=== PATIENT | male | born 1970 | race Caucasian/White ===

== ENCOUNTER → 2016-05-04 | Outpatient (CLI) | payer OTHER ==
[~2016-05-04] MED LIST: ALLO100T PO; AMOX500C3 PO; ASPI81TA28 PO; ATV5 PO; BUPR-79 PO; CMD10 PO; CMD5 PO; ESCI1TAB18 PO; FEBU40TA PO; LPR25 PO; METO100T14 PO; METO50TA16 PO; MISC4CAP PO; MULTTAB58 PO; ROPI0.25 PO; VANC5CAP PO; WARF2TAB8 PO; WARF5TAB7 PO; ZCRT/40 PO; ZOLP10TA PO
[2016-05-04 12:05] LABS: BASO % 0.3 %; BASO ABS # 0.02 K/uL (0-0.2); COMPLETE YES; EOS % 2.5 %; HEMATOCRIT 42.7 % (42-52); IG% 0.1 %; LYMPH % 30.4 %; LYMPH ABS # 2.34 K/uL (1.2-3.4); MEAN CELL VOLUME 88.4 fL (80-100); MEAN CORPUSCULAR HEMOGLOBIN 29.4 pg (25-34); MEAN CORPUSCULAR HGB CONC 33.3 g/dl (32-36); MEAN PLATELET VOLUME 10.5 fL (7.4-10.4); MONO % 6.2 %; NEUT % 60.5 %; PLATELET COUNT 248 K/uL (130-400); RED BLOOD COUNT 4.83 M/uL (4.7-6.1); WHITE BLOOD COUNT 7.71 K/uL (4.8-10.8)
[2016-05-04 12:42] LABS: ALT/SGPT 55 U/L (12-78); AST/SGOT 52 U/L (15-37); BLOOD UREA NITROGEN 22 mg/dl (7-18); BUN/CREATININE RATIO 23.1 (10-20); CALCIUM 8.8 mg/dl (8.5-10.1); CARBON DIOXIDE 28 mmol/L (21-32); CHLORIDE 108 mmol/L (98-107); CREATININE 0.96 mg/dl (0.60-1.40); GLUCOSE 89 mg/dl (70-99); POTASSIUM 4.2 mmol/L (3.5-5.1); SODIUM 144 mmol/L (136-145)
[2016-05-04 12:45] LABS: ALKALINE PHOSPHATASE 95 U/L (45-117)
== END | disposition home or self-care (01) ==
LOC: C.LAB1850 10:27
PROVIDERS: ATTEND Internal Medicine
DX: M31.0 Hypersensitivity angiitis (principal)

== ENCOUNTER → 2016-07-31 | Outpatient (CLI) | payer OTHER ==
[2016-07-31 11:05] LABS: ALT/SGPT 36 U/L (12-78); AST/SGOT 22 U/L (15-37)
== END | disposition home or self-care (01) ==
LOC: C.LAB 09:28
PROVIDERS: ATTEND Internal Medicine
DX: M31.0 Hypersensitivity angiitis (principal)

== ENCOUNTER 2016-12-04 14:43 | Inpatient (IN) | payer OTHER ==
[~2016-12-04] VITALS: Ht 180.3 cm; Wt 113.9 kg
[~2016-12-04 14:43] MED LIST changes: -CMD10 PO; -FEBU40TA PO; -METO100T14 PO; -ROPI0.25 PO; -WARF2TAB8 PO; -WARF5TAB7 PO
--- NOTE | 2016-12-04 15:08 | EMERGENCY ROOM VISIT NOTE ---
History First contact with patient: 14:55 Chief Complaint: CARDIAC ASSESSMENT Stated Complaint: HEART FLUTTERING/SKIPPING/RACING/HEADACHE/PULSE Nursing Triage Summary: Pt c/o heart racing, fluttering, skipping, had arythmia in highschool and has an artificial valve. Yesterday rate was 150's today 130's. "and I have a gnarly headache" History of Present Illness The patient is a 46 year old male who presents to the Emergency Room with complaints of "Heart fluttering, skipping, racing, headache, pulse". The patient states he has a history of arrhythmia in high school, and had a heart valve replacement at [facility] 07/26/2011. This was replacing down valve as per patient. He states that he has been doing well, and takes Coumadin. His last INR was 2.51 month ago. He states that 1 week ago, he went to [facility] after eating developed a very high pulse. He states that he was okay until yesterday when his pulse went up to 150 and has been persistently at that number. He was unable to sleep last night secondary to shortness of breath in the high pulse rate. He denies any chest pain. Does have associated headache. His history of hypertension. He denies any history of blood clots, leg swelling. Review of Systems A complete 10-point Review of Systems was discussed with the patient, with pertinent positives and negatives listed in the History of Present Illness. All remaining Review of Systems questions can be considered negative unless otherwise specified. Past Medical/Surgical History Medical Problems: (1) C. difficile colitis (2) Palpitations (3) Tachycardia Surgical Problems: (1) H/O mitral valve replacement Family History No pertinent family history Social History Smoking Status: Former Smoker Alcohol Use: none Drug Use: none Marital Status: in relationship Housing Status: unknown Occupation Status: employed Current/Historical Medications Scheduled Amoxicillin (Amoxil), 2,000 MG PO UD Aspirin (Aspirin Ec), 81 MG PO QAM Bupropion (Wellbutrin Sr), 150 MG PO BID Escitalopram Oxalate (Lexapro), 20 MG PO HS Febuxostat (Uloric), 40 MG PO QAM Metoprolol Tartrate (Lopressor) (Lopressor), 150 MG PO QPM Multiple Vitamin (Multivitamin), 1 TAB PO QAM Probiotic Product (Align), 4 MG PO HS Ropinirole (Requip), 0.5 MG PO HS Simvastatin (Zocor), 40 MG PO QPM Vancomycin Hcl (Vancomycin), 125 MG PO QPM Warfarin Sod (Jantoven), 5 MG PO DAILY Warfarin Sod (Jantoven), 2 MG PO DAILY Zolpidem Tartrate (Ambien), 10 MG PO HS Scheduled PRN Lorazepam (Ativan *), 0.5 MG PO TID PRN Physical Exam Vital Signs Date Time Temp Pulse Resp B/P (MAP) Pulse Ox O2 Delivery O2 Flow Rate FiO2 12/04/16 19:38 103 23 130/71 95 12/04/16 19:05 115 26 117/83 96 Room Air 12/04/16 17:21 132 19 123/91 96 Room Air 12/04/16 16:44 116 32 134/80 97 12/04/16 16:12 111 24 128/97 98 Room Air 12/04/16 15:58 128 23 132/96 98 Room Air 12/04/16 15:58 104 132/96 12/04/16 15:32 136 17 112/96 98 Room Air 12/04/16 15:31 98 Room Air 12/04/16 15:21 134 154/118 12/04/16 15:14 133 12/04/16 14:48 96 Room Air 12/04/16 14:45 36.7 Room Air Physical Exam VITAL SIGNS - Vital signs and nursing notes were reviewed. Patient is tachycardic, with stable blood pressure. His O2 sat is appropriate. GENERAL -46-year-old male appearing his stated age who is in no acute distress. Communicates well with provider and answers questions appropriately. SKIN - Without rashes. HEAD - NC/AT. MOUTH/OROPHARYNX - Without perioral cyanosis. Buccal mucosa pink and moist and without leukoplakia. NECK - Neck with FROM. Supple to palpation. No lymphadenopathy noted. No nuchal rigidity. LUNGS - Chest wall symmetric without accessory muscle use, intercostals retractions, or central cyanosis. Normal vesicular breath sounds CTA B/L. No wheezes, rales, or rhonchi appreciated. CARDIAC - RRR with S1/S2. No murmur, rubs, or gallops appreciated. NEUROLOGIC - Cranial nerves II through XII grossly intact. Sensory intact to light touch throughout. PSYCH - A&Ox3 and cooperates fully with examiner. Pt is very pleasant and interacts well with examiner. Medical Decision & Procedures ER Provider Diagnostic Interpretation: CHEST ONE VIEW PORTABLE CLINICAL HISTORY: Dyspnea, tachycardia. Mechanical heart valve COMPARISON STUDY: 07/03/2014 FINDINGS: Mild stable cardiomegaly. Prior median sternotomy. Lungs are clear. Diaphragms are smooth. IMPRESSION: Chronic and postoperative change. No acute process. The above report was generated using voice recognition software. It may contain grammatical, syntax or spelling errors. Electronically signed by: Eros Saravia M.D. 12/04/2016 4:49 PM Dictated Date/Time: 12/04/2016 4:48 PM Laboratory Results 12/04/16 15:25 Red Blood Count 5.21, Mean Corpuscular Volume 88.3, Mean Corpuscular Hemoglobin 30.5, Mean Corpuscular Hemoglobin Concent 34.6, Mean Platelet Volume 10.7, Neutrophils (%) (Auto) 63.9, Lymphocytes (%) (Auto) 27.3, Monocytes (%) (Auto) 7.2, Eosinophils (%) (Auto) 1.3, Basophils (%) (Auto) 0.2, Neutrophils # (Auto) 5.82, Lymphocytes # (Auto) 2.49, Monocytes # (Auto) 0.66, Eosinophils # (Auto) 0.12, Basophils # (Auto) 0.02 12/04/16 15:25 Test 12/04/16 15:25 12/04/16 15:38 12/04/16 17:50 White Blood Count 9.12 K/uL (4.8-10.8) Red Blood Count 5.21 M/uL (4.7-6.1) Hemoglobin 15.9 g/dL (14.0-18.0) Hematocrit 46.0 % (42-52) Mean Corpuscular Volume 88.3 fL (80-100) Mean Corpuscular Hemoglobin 30.5 pg (25-34) Mean Corpuscular Hemoglobin Concent 34.6 g/dl (32-36) Platelet Count 251 K/uL (130-400) Mean Platelet Volume 10.7 fL (7.4-10.4) Neutrophils (%) (Auto) 63.9 % Lymphocytes (%) (Auto) 27.3 % Monocytes (%) (Auto) 7.2 % Eosinophils (%) (Auto) 1.3 % Basophils (%) (Auto) 0.2 % Neutrophils # (Auto) 5.82 K/uL (1.4-6.5) Lymphocytes # (Auto) 2.49 K/uL (1.2-3.4) Monocytes # (Auto) 0.66 K/uL (0.11-0.59) Eosinophils # (Auto) 0.12 K/uL (0-0.5) Basophils # (Auto) 0.02 K/uL (0-0.2) RDW Standard Deviation 44.2 fL (36.4-46.3) RDW Coefficient of Variation 13.6 % (11.5-14.5) Immature Granulocyte % (Auto) 0.1 % Immature Granulocyte # (Auto) 0.01 K/uL (0.00-0.02) Prothrombin Time 23.0 SECONDS (9.0-12.0) Prothromb Time International Ratio 2.1 (0.9-1.1) Activated Partial Thromboplast Time 36.9 SECONDS (21.0-31.0) Partial Thromboplastin Ratio 1.4 Anion Gap 10.0 mmol/L (3-11) Est Creatinine Clear Calc Drug Dose 109.3 ml/min Estimated GFR () 93.5 Estimated GFR (Non- 80.6 BUN/Creatinine Ratio 16.1 (10-20) Calcium Level 8.9 mg/dl (8.5-10.1) Magnesium Level 2.1 mg/dl (1.8-2.4) Total Bilirubin 1.0 mg/dl (0.2-1) Aspartate Amino Transf (AST/SGOT) 26 U/L (15-37) Alanine Aminotransferase (ALT/SGPT) 34 U/L (12-78) Alkaline Phosphatase 108 U/L (45-117) Total Creatine Kinase 94 U/L (39-308) Creatine Kinase MB 1.7 ng/ml (0.5-3.6) Creatine Kinase MB Ratio 1.8 (0-3.0) Total Protein 7.4 gm/dl (6.4-8.2) Albumin 3.8 gm/dl (3.4-5.0) Globulin 3.6 gm/dl (2.5-4.0) Albumin/Globulin Ratio 1.1 (0.9-2) Thyroid Stimulating Hormone (TSH) 1.790 uIu/ml (0.300-4.500) Lyme Disease IgG Antibody NEG (NEG) Lyme Disease IgM Antibody NEG (NEG) Bedside Troponin I < 0.030 ng/ml (0-0.045) Urine Color YELLOW Urine Appearance CLEAR (CLEAR) Urine pH 5.0 (4.5-7.5) Urine Specific [place] 1.017 (1.000-1.030) Urine Protein TRACE (NEG) Urine Glucose (UA) NEG (NEG) Urine Ketones NEG (NEG) Urine Occult Blood 3+ (NEG) Urine Nitrite NEG (NEG) Urine Bilirubin NEG (NEG) Urine Urobilinogen NEG (NEG) Urine Leukocyte Esterase TRACE (NEG) Urine WBC (Auto) 1-5 /hpf (0-5) Urine RBC (Auto) 0-4 /hpf (0-4) Urine Hyaline Casts (Auto) 0 /lpf (0-5) Urine Epithelial Cells (Auto) 0-5 /lpf (0-5) Urine Bacteria (Auto) NEG (NEG) Urine Opiates Screen NEG (NEG) Urine Methadone, Qualitative NEG (NEG) Urine Barbiturates NEG (NEG) Urine Phencyclidine (PCP) Level NEG (NEG) Ur Amphetamine/Methamphetamine NEG (NEG) MDMA (Ecstasy) Screen POS (NEG) Urine Benzodiazepines Screen NEG (NEG) Urine Cocaine Metabolite NEG (NEG) Urine Marijuana (THC) NEG (NEG) Medications Administered Medications (Trade) Dose Ordered Sig/Robert Route Start Time Stop Time Status Last Admin Dose Admin Metoprolol Tartrate (Lopressor Iv) 5 mg NOW STAT IV 12/04/16 15:15 12/04/16 15:17 DC 12/04/16 15:21 5 MG Sodium Chloride 500 ml @ 999 mls/hr Q31M STAT IV 12/04/16 15:52 12/04/16 16:22 DC 12/04/16 15:52 999 MLS/HR Metoprolol Tartrate (Lopressor Iv) 5 mg NOW STAT IV 12/04/16 15:52 12/04/16 15:54 DC 12/04/16 15:58 5 MG Acetaminophen (Tylenol Tab) 650 mg NOW STAT PO 12/04/16 18:02 12/04/16 18:03 DC 12/04/16 19:08 650 MG Diltiazem HCl 125 mg/Dextrose 125 ml @ 5 mls/hr Q24H PRN IV 12/04/16 19:00 01/03/17 18:59 12/04/16 19:11 5 MLS/HR Medical Decision Patient was seen and evaluated as above. After obtaining a thorough history and physical examination IV access was initiated, and the above workup was performed. Patient is associated with shortness of breath, and tachycardia. He also has a headache. EKG reveals tachycardia, without any clear intrafibrillation, or wide QRS complex. No evidence of ST segment elevation myocardial infarction. Chest x-ray unremarkable for acute process, with results as above. CBC reveals no leukocytosis or anemia. Coags revealed INR 2.1. CMP unremarkable. Troponin negative. TSH unremarkable. Urine reveals 3 + occult blood, and trace leukocyte esterase. Urine reveals positive MDMA, but I suspect this is likely secondary to an underlying medication. The patient was given 5 mg of metoprolol, and bolused with 500 mL's of normal saline. The helped the rate slightly, then another 5 mg were ordered. The case was discussed with the attending physician, and the decision was made to admit the patient for further evaluation and management. Cardiology was consulted. The case was discussed with Dr. Barkley. His recommendations were appreciated. Please refer to further documentation regarding the patient's stay. I spoke with [facility] hospitalist. In evaluation treatment this patient the following differential diagnoses were entertained: Atrial tachycardia, Atrial fibrillation, a flutter, V. tach, PE, [place] , among others. Impression Primary Impression: Tachycardia Departure Information Dispostion Admitted as an inpatient Condition FAIR Referrals Pro,Dillan Jason M.D. (PCP) Patient Instructions My [facility]
[2016-12-04] MEDS ORDERED: METOPROLOL TARTRATE 1 MG/ML VIAL IV STA ×2 (15:15→15:52)
[2016-12-04] MEDS ORDERED: SODIUM CHLORIDE 0.9% 500ML 500 ML IV STA (15:52)
[2016-12-04 15:53] LABS: BASO % 0.2 %; BASO ABS # 0.02 K/uL (0-0.2); COMPLETE YES; EOS % 1.3 %; IG% 0.1 %; LYMPH % 27.3 %; LYMPH ABS # 2.49 K/uL (1.2-3.4); MEAN CELL VOLUME 88.3 fL (80-100); MEAN CORPUSCULAR HEMOGLOBIN 30.5 pg (25-34); MEAN CORPUSCULAR HGB CONC 34.6 g/dl (32-36); MEAN PLATELET VOLUME 10.7 fL (7.4-10.4); MONO % 7.2 %; NEUT % 63.9 %; PLATELET COUNT 251 K/uL (130-400); RED BLOOD COUNT 5.21 M/uL (4.7-6.1); WHITE BLOOD COUNT 9.12 K/uL (4.8-10.8)
[2016-12-04 16:03] LABS: INR 2.1 (0.9-1.1); PARTIAL THROMBOPLASTIN RATIO 1.4
[2016-12-04 16:13] LABS: BUN/CREATININE RATIO 16.1 (10-20); CALCIUM 8.9 mg/dl (8.5-10.1); CREATININE 1.1 mg/dl (0.60-1.40); MAGNESIUM 2.1 mg/dl (1.8-2.4); POTASSIUM 3.9 mmol/L (3.5-5.1)
[2016-12-04 16:25] LABS: ALB/GLOB RATIO 1.1 (0.9-2); CKMB/CK RATIO 1.8 (0-3.0); THYROID STIMULATING HORMONE 1.79 uIu/ml (0.300-4.500)
[2016-12-04 16:43] LABS: LYME DISEASE AB IGG NEG (NEG); LYME DISEASE AB IGM NEG (NEG)
--- NOTE | 2016-12-04 16:50 | DIAGNOSTIC IMAGING REPORT ---
CHEST ONE VIEW PORTABLE CLINICAL HISTORY: Dyspnea, tachycardia. Mechanical heart valve COMPARISON STUDY: 07/03/2014 FINDINGS: Mild stable cardiomegaly. Prior median sternotomy. Lungs are clear. Diaphragms are smooth. IMPRESSION: Chronic and postoperative change. No acute process. The above report was generated using voice recognition software. It may contain grammatical, syntax or spelling errors. Electronically signed by: Eros Saravia M.D. 12/04/2016 4:49 PM Dictated Date/Time: 12/04/2016 4:48 PM
[2016-12-04] MEDS ORDERED: WARF5TAB7 PO (17:17)
[2016-12-04] MEDS ORDERED: WARF2TAB8 PO (17:17)
[2016-12-04] MEDS ORDERED: ROPI0.25 PO (17:17)
[2016-12-04] MEDS ORDERED: FEBU40TA PO (17:17)
[2016-12-04] MEDS ORDERED: METO100T14 PO (17:17)
--- NOTE | 2016-12-04 17:50 | Cardiology Consultation ---
Cardiology Consultation Date of Consultation: Dec 04, 2016. Requesting Physician: Jodi Reason for Consultation: tachycardia History of Present Illness The patient is a 46-year-old gentleman with a history of aortic valve disease and mechanical aortic valve replacement he has been experiencing symptoms of tachycardia and palpitations. Patient states that for the past 2 days he has had fairly extended episodes of palpitations. These have been associated with some symptoms of mild dizziness. He has not had any symptoms of chest discomfort or significant breathing difficulty except with exertion. When he is active he has some mild dyspnea. He has not suffered syncope. He has had similar symptoms in the past but generally resolve without any particular intervention. Patient can report episodes of tachycardia and palpitations dating back several years. These episodes generally are limited in duration to several hours. He has few symptoms associated with the tachycardia except as mentioned above. He has been more concerned lately as the episodes have been more frequent and of longer duration. Because the episode currently did not resolve he felt an evaluation was warranted. At the time of this interview the patient claims to be feeling well. He still has a sensation of palpitations and racing heartbeat. He has no symptoms of chest discomfort and no breathing difficulty currently. He has been maintaining his usual level of activity. He does not perform routine exercise, but can engage in regular activity without limitation. He has no symptoms of chest discomfort or exertional dyspnea usually. He has been compliant with his medical therapy. Past Medical/Surgical History Bicuspid aortic valve Colonized with Clostridium difficile Depression Hyperlipidemia Gout Hypertension Leukocytoclastic vasculitis Obstructive sleep apnea Restless leg syndrome Renal mass status post partial nephrectomy Past surgical history Right partial nephrectomy Mechanical AVR [address] [facility] Family History No pertinent family history No premature coronary disease Social History Smoking Status: Former Smoker History of Alcohol Use: Yes (weekend) Review of Systems Constitutional: + see HPI Respiratory: + see HPI Cardiac: + see HPI Abdomen: + see HPI Male : + see HPI Neurologic: + see HPI Heme: + see HPI Endo: + see HPI Skin: + see HPI All Other Systems: Reviewed and Negative Allergies Coded Allergies: No Known Allergies (Unverified , 12/04/16) Medications Aspirin 81 milligrams daily Warfarin Bupropion Cyclobenzaprine Metoprolol Ropinarole Simvastatin Uloric Vancomycin Physical Exam Vital Signs Past 12 Hours Date Time Temp Pulse Resp B/P (MAP) Pulse Ox O2 Delivery O2 Flow Rate FiO2 12/04/16 17:21 132 19 123/91 96 Room Air 12/04/16 16:44 116 32 134/80 97 12/04/16 16:12 111 24 128/97 98 Room Air 12/04/16 15:58 128 23 132/96 98 Room Air 12/04/16 15:58 104 132/96 12/04/16 15:32 136 17 112/96 98 Room Air 12/04/16 15:31 98 Room Air 12/04/16 15:21 134 154/118 12/04/16 15:14 133 12/04/16 14:48 96 Room Air 12/04/16 14:45 36.7 Room Air The patient is alert and oriented. Mood and affect appeared normal. He answered all questions appropriately. HEENT: Pupils are equal and reactive to light and accommodation. Extraocular movements are intact. The sclerae are anicteric. Neuro: Cranial nerves intact Neck: Patient's neck is supple. He has palpable carotid pulses bilaterally without bruits on auscultation. There is no evidence of jugular venous distention. The thyroid is not enlarged. Lungs: Clear to auscultation bilaterally. He has good air movement without use of accessory muscles. No rales wheezes or rhonchi. Chest: Keel a type scar along the sternum and epigastrium Cardiac: Heart demonstrates a regular rate and rhythm some ectopy and tachycardia. Normal S1 and mechanical S2. No murmurs on examination. Pulses: The patient has palpable radial pulses bilaterally that are equal in intensity Extremities: There was no evidence of hypoperfusion. There is no cyanosis or clubbing. There is no edema. Skin: I did not appreciate any rashes on examination today. Data Laboratory Results: Last 24 Hours Test 12/04/16 15:25 12/04/16 15:38 White Blood Count 9.12 K/uL Red Blood Count 5.21 M/uL Hemoglobin 15.9 g/dL Hematocrit 46.0 % Mean Corpuscular Volume 88.3 fL Mean Corpuscular Hemoglobin 30.5 pg Mean Corpuscular Hemoglobin Concent 34.6 g/dl Platelet Count 251 K/uL Mean Platelet Volume 10.7 fL Neutrophils (%) (Auto) 63.9 % Lymphocytes (%) (Auto) 27.3 % Monocytes (%) (Auto) 7.2 % Eosinophils (%) (Auto) 1.3 % Basophils (%) (Auto) 0.2 % Neutrophils # (Auto) 5.82 K/uL Lymphocytes # (Auto) 2.49 K/uL Monocytes # (Auto) 0.66 K/uL Eosinophils # (Auto) 0.12 K/uL Basophils # (Auto) 0.02 K/uL RDW Standard Deviation 44.2 fL RDW Coefficient of Variation 13.6 % Immature Granulocyte % (Auto) 0.1 % Immature Granulocyte # (Auto) 0.01 K/uL Prothrombin Time 23.0 SECONDS Prothromb Time International Ratio 2.1 Activated Partial Thromboplast Time 36.9 SECONDS Partial Thromboplastin Ratio 1.4 Sodium Level 142 mmol/L Potassium Level 3.9 mmol/L Chloride Level 107 mmol/L Carbon Dioxide Level 25 mmol/L Anion Gap 10.0 mmol/L Blood Urea Nitrogen 18 mg/dl Creatinine 1.10 mg/dl Est Creatinine Clear Calc Drug Dose 109.3 ml/min Estimated GFR () 93.5 Estimated GFR (Non- 80.6 BUN/Creatinine Ratio 16.1 Random Glucose 86 mg/dl Calcium Level 8.9 mg/dl Magnesium Level 2.1 mg/dl Total Bilirubin 1.0 mg/dl Aspartate Amino Transf (AST/SGOT) 26 U/L Alanine Aminotransferase (ALT/SGPT) 34 U/L Alkaline Phosphatase 108 U/L Total Creatine Kinase 94 U/L Creatine Kinase MB 1.7 ng/ml Creatine Kinase MB Ratio 1.8 Total Protein 7.4 gm/dl Albumin 3.8 gm/dl Globulin 3.6 gm/dl Albumin/Globulin Ratio 1.1 Thyroid Stimulating Hormone (TSH) 1.790 uIu/ml Lyme Disease IgG Antibody NEG Lyme Disease IgM Antibody NEG Bedside Troponin I < 0.030 ng/ml Imaging: Chest x-ray demonstrated only postoperative changes. No acute cardiopulmonary disease EKG: Ectopic atrial tachycardia Telemetry reviewed: Ectopic atrial tachycardia competing with sinus rhythm Cardiac catheterization 2011 without evidence of obstructive coronary disease Echocardiogram performed as an outpatient February 2016: Preserved LV systolic function. Normal function of the prosthetic aortic valve. Mild left ventricular and left atrial enlargement. Mild concentric hypertrophy. Stage I diastolic dysfunction Assessment & Plan 1. Tachycardia: Reviewed the patient's EKGs in comparison to old EKGs suggest this current rhythm is an ectopic atrial tachycardia. P-wave morphology is suggestive of right atrial tachycardia. Sounds as if he has had symptoms of this arrhythmia for some time although of shorter duration. It is unclear why he is having more sustained episodes currently. He has received some metoprolol in the emergency room without notable effect. Fortunately, he has preserved LV systolic function has few symptoms associated with the tachycardia currently. I think there are several options for treatment. We can start with simple rate control agents such as diltiazem. This may reduce some of the automaticity of the atrial focus and help control the heart rate. That seems ineffectual we can consider antiarrhythmic therapy. Unfortunately, given his structural heart disease our choices are limited. He may respond quite well to sotalol or possibly dofetilide. Dronedarone would be an option, and amiodarone is less desirable given his young age. I think he was respond quite well to a class 1 C agent, but once again given his structural heart disease this is relatively contraindicated. I also had a discussion with him regarding catheter based therapy. I think there is the option for electrophysiologic testing and possible ablation. Once again, given the negative P-wave in lead V1 I suspect this is right atrial in nature. Given his aortic valve replacement I would not be enthusiastic about attempting of left atrial ablation via transseptal approach here at our facility. However, this could be considered at a tertiary care facility if other efforts are not effective in controlling this arrhythmia. 2. Aortic valve disease: Patient is status post mechanical aortic valve replacement. This appears to be functioning well as of 2015. No evidence of dysfunction on exam today. Patient is appropriately anticoagulated. He should be maintained on warfarin currently. No need to interrupt anticoagulation for any procedure.
[2016-12-04] MEDS ORDERED: MAGNESIUM HYDROXIDE SUSP 30 ML UDC PO PRN (18:00)
[2016-12-04] MEDS ORDERED: POLYETHYLENE (MIRALAX) 17 GM PACK PO PRN (18:00)
[2016-12-04] MEDS ORDERED: LORAZEPAM 0.5 MG TAB PO PRN (18:00)
[2016-12-04] MEDS ORDERED: ONDANSETRON INJ 2 MG/ML 2 ML VIAL IV PRN (18:00)
[2016-12-04] MEDS ORDERED: ALUMINUM/MAGNESIUM/SIMETH (MAALOX MAX) 30 ML UDC PO PRN (18:00)
[2016-12-04] MEDS ORDERED: DILTIAZEM BOLUS / DRIP IV STA (18:00)
[2016-12-04] MEDS ORDERED: ACETAMINOPHEN 325 MG TAB PO STA (18:02)
--- NOTE | 2016-12-04 18:20 | History and Physical ---
History & Physical Date & Time of Service: Dec 04, 2016 at 18:18 Chief Complaint: Heart Fluttering/Skipping/Racing/Headache/Pulse Primary Care Physician: Dillan Bunn M.D. History of Present Illness Source: patient, clinic records, hospital records This is a 46 y/o male with a history of mechanical AVR in June 2011, HTN, HLD, gout, depression and anxiety, RLS, GINA, and h/o recurrent C. diff who presented to the ED on 12/04 with palpitations, dizziness and shortness of breath. The patient states he has a history of arrhythmia with similar symptoms since high school. The arrhythmia had seemed to resolve in college and did not recur again until a few years ago following his AVR. The patient states if he develops palpitations, it is usually very short lived. A few weeks ago the patient had developed palpitations and had sustained tachycardia for a few hours before eventually resolving. Yesterday, the patient again became tachycardic with his HR consistently in the 150s and associated palpitations, shortness of breath and dizziness. This time his symptoms have persisted for over a day, prompting him to come to the ER as this does not usually last so long. The patient denies fevers, chills, sweats, chest pain, claudication, cough, wheezing, nausea, vomiting, abdominal pain, dysuria, hematuria, urinary retention, paralysis, weakness, numbness and tingling. Past Medical/Surgical History Medical Problems: (1) C. difficile colitis Status: Recurrent, on chronic vancomycin Surgical Problems: (1) H/O aortic valve replacement Status: Resolved HTN HLD Gout Depression with anxiety RLS GINA Family History Bipolar disorder Coronary artery disease Myocardial infarction Schizophrenia Social History Smoking Status: Former Smoker (quit 1 year ago) Smokeless Tobacco Use: No Alcohol Use: socially (beer on weekends) Drug Use: none Marital Status: in relationship Housing status: lives with significant other (lives with partner) Occupational Status: employed Immunizations History of Influenza Vaccine: Yes Influenza Vaccine Date: Feb 02, 2011 History of Tetanus Vaccine?: Unknown History of Pneumococcal: No History of Hepatitis B Vaccine: Unknown Allergies Coded Allergies: No Known Allergies (Unverified , 12/04/16) Home Medications Scheduled Amoxicillin (Amoxil), 2,000 MG PO UD Aspirin (Aspirin Ec), 81 MG PO QAM Bupropion (Wellbutrin Sr), 150 MG PO BID Escitalopram Oxalate (Lexapro), 20 MG PO HS Febuxostat (Uloric), 40 MG PO QAM Metoprolol Tartrate (Lopressor) (Lopressor), 150 MG PO QPM Multiple Vitamin (Multivitamin), 1 TAB PO QAM Probiotic Product (Align), 4 MG PO HS Ropinirole (Requip), 0.5 MG PO HS Simvastatin (Zocor), 40 MG PO QPM Vancomycin Hcl (Vancomycin), 125 MG PO QPM Warfarin Sod (Jantoven), 5 MG PO DAILY Warfarin Sod (Jantoven), 2 MG PO DAILY Zolpidem Tartrate (Ambien), 10 MG PO HS Scheduled PRN Lorazepam (Ativan *), 0.5 MG PO TID PRN Review of Systems Constitutional: No fever, No chills, No sweats, No weakness, No fatigue Eyes: No worsening of vision, No discharge, No diplopia ENT: No hearing loss, No sore throat, No trouble swallowing Respiratory: + shortness of breath, No cough, No wheezing Cardiovascular: + palpitations, No chest pain, No claudication Abdomen: No pain, No nausea, No vomiting Musculoskeletal: No joint pain, No muscle pain, No swelling Genitourinary - Male: No hematuria, No dysuria, No urinary retention Neurologic: No paralysis, No weakness, No numbness/tingling Integumentary: No rash, No itch, No color change Physical Exam Vital Signs Date Time Temp Pulse Resp B/P (MAP) Pulse Ox O2 Delivery O2 Flow Rate FiO2 12/04/16 17:21 132 19 123/91 96 Room Air 12/04/16 16:44 116 32 134/80 97 12/04/16 16:12 111 24 128/97 98 Room Air 12/04/16 15:58 128 23 132/96 98 Room Air 12/04/16 15:58 104 132/96 12/04/16 15:32 136 17 112/96 98 Room Air 12/04/16 15:31 98 Room Air 12/04/16 15:21 134 154/118 12/04/16 15:14 133 12/04/16 14:48 96 Room Air 12/04/16 14:45 36.7 Room Air General appearance: +Obese. Well-developed, well-nourished, no apparent distress Head: Normocephalic, atraumatic Eyes: Normal inspection, PERRL, EOMI ENT: Normal ENT inspection, hearing grossly normal, pharynx normal Neck: Supple, no JVD, trachea midline Respiratory/Chest: Lungs clear to auscultation, normal breath sounds, no respiratory distress Cardiovascular: +Tachycardic. Regular rhythm, no gallop, no murmur Abdomen/GI: Normal bowel sounds, non-tender, soft Extremities/Musculoskeletal: Normal inspection, no calf tenderness, no pedal edema Neurological/Psych: Alert, normal mood/affect, oriented x 3 Skin: Normal color, warm/dry, no rash Diagnostics Laboratory Results Results Past 24 Hours Test 12/04/16 15:25 12/04/16 15:38 12/04/16 17:50 Range/Units White Blood Count 9.12 4.8-10.8 K/uL Red Blood Count 5.21 4.7-6.1 M/uL Hemoglobin 15.9 14.0-18.0 g/dL Hematocrit 46.0 42-52 % Mean Corpuscular Volume 88.3 80-100 fL Mean Corpuscular Hemoglobin 30.5 25-34 pg Mean Corpuscular Hemoglobin Concent 34.6 32-36 g/dl Platelet Count 251 130-400 K/uL Mean Platelet Volume 10.7 7.4-10.4 fL Neutrophils (%) (Auto) 63.9 % Lymphocytes (%) (Auto) 27.3 % Monocytes (%) (Auto) 7.2 % Eosinophils (%) (Auto) 1.3 % Basophils (%) (Auto) 0.2 % Neutrophils # (Auto) 5.82 1.4-6.5 K/uL Lymphocytes # (Auto) 2.49 1.2-3.4 K/uL Monocytes # (Auto) 0.66 0.11-0.59 K/uL Eosinophils # (Auto) 0.12 0-0.5 K/uL Basophils # (Auto) 0.02 0-0.2 K/uL RDW Standard Deviation 44.2 36.4-46.3 fL RDW Coefficient of Variation 13.6 11.5-14.5 % Immature Granulocyte % (Auto) 0.1 % Immature Granulocyte # (Auto) 0.01 0.00-0.02 K/uL Prothrombin Time 23.0 9.0-12.0 SECONDS Prothromb Time International Ratio 2.1 0.9-1.1 Activated Partial Thromboplast Time 36.9 21.0-31.0 SECONDS Partial Thromboplastin Ratio 1.4 Sodium Level 142 136-145 mmol/L Potassium Level 3.9 3.5-5.1 mmol/L Chloride Level 107 98-107 mmol/L Carbon Dioxide Level 25 21-32 mmol/L Anion Gap 10.0 3-11 mmol/L Blood Urea Nitrogen 18 7-18 mg/dl Creatinine 1.10 0.60-1.40 mg/dl Est Creatinine Clear Calc Drug Dose 109.3 ml/min Estimated GFR () 93.5 Estimated GFR (Non- 80.6 BUN/Creatinine Ratio 16.1 10-20 Random Glucose 86 70-99 mg/dl Calcium Level 8.9 8.5-10.1 mg/dl Magnesium Level 2.1 1.8-2.4 mg/dl Total Bilirubin 1.0 0.2-1 mg/dl Aspartate Amino Transf (AST/SGOT) 26 15-37 U/L Alanine Aminotransferase (ALT/SGPT) 34 12-78 U/L Alkaline Phosphatase 108 45-117 U/L Total Creatine Kinase 94 39-308 U/L Creatine Kinase MB 1.7 0.5-3.6 ng/ml Creatine Kinase MB Ratio 1.8 0-3.0 Total Protein 7.4 6.4-8.2 gm/dl Albumin 3.8 3.4-5.0 gm/dl Globulin 3.6 2.5-4.0 gm/dl Albumin/Globulin Ratio 1.1 0.9-2 Thyroid Stimulating Hormone (TSH) 1.790 0.300-4.500 uIu/ml Lyme Disease IgG Antibody NEG NEG Lyme Disease IgM Antibody NEG NEG Bedside Troponin I < 0.030 0-0.045 ng/ml Diagnostic Radiology Reviewed the following studies and agree with interpretation as follows: Patient Name: GULSHAN VILLALTA Unit Number: [id number] Dictated: 12/04/161647 Transcribed: 12/04/161647 MS Printed Date/Time: [~ rep prt dt]/[~ rep prt tm] [~ rep ct labl] - [~ rep ct ivnm] [facility] [place] [address] Dictated: 12/04/16 1648 Transcribed: 12/04/16 1648 MS Printed Date/Time: [~ rep prt dt]/[~ rep prt tm] [~ rep ct labl] - [~ rep ct ivnm] Patient: GULSHAN VILLALTA Address1: [address] [facility] Rec: [id number] Address2: Acct ID: [id number] [facility] Zip: [place] [address] Date: 1970 Sex: M Room/Bed: Ref Phy: Dillan Bunn M.D. SC: BULL Att Phy: Report #: [id number] [place] Phy: Dillan Bunn M.D. Test: CXR1P Admit Phy: Instructional Coordinator: YOUNG Interpreting Phy: Eros Saravia M.D. Diagnosis: HEART FLUTTERING/SKIPPING/ RACING/HEADACHE/PULSE Ordering Phy: Pasha eVlasquez PA-C Service Date: 12/04/16 Admit Date: 12/04/16 MNE: [id number] CONF: DICTATED BY: Eros Saravia M.D.]] CC: Pasha Velasquez PA-C Flickinger, Bridget B., M.D. Pro, Jeffrey W., M.D. Endcc: [~ rep ct add3]] CHEST ONE VIEW PORTABLE CLINICAL HISTORY: Dyspnea, tachycardia. Mechanical heart valve COMPARISON STUDY: 07/03/2014 FINDINGS: Mild stable cardiomegaly. Prior median sternotomy. Lungs are clear. Diaphragms are smooth. IMPRESSION: Chronic and postoperative change. No acute process. The above report was generated using voice recognition software. It may contain grammatical, syntax or spelling errors. Electronically signed by: Eros Saravia M.D. 12/04/2016 4:49 PM Dictated Date/Time: 12/04/2016 4:48 PM The status of this report is Signed. Draft = Not yet reviewed or approved by Radiologist. Signed = Reviewed and approved by Radiologist. <AttendingPhy></AttendingPhy> <FamilyPhy>Dillan Bunn M.D.</FamilyPhy> < PrimaryPhy>Pro,Dillan W., M.D.</PrimaryPhy> <UnitNumber>[id number]</UnitNumber > <VisitNumber>[id number]</VisitNumber> <PatientName>GULSHAN VILLALTA</ PatientName> <DateOfBirth>1970</DateOfBirth> <Location>[facility]</Location> < ServiceDate>12/04/16</ServiceDate> <MNE>ESINDI</MNE> <OrderingPhy>Pasha Velasquez PA-C</OrderingPhy> <OrderingPhyMNE>f rep ord dr marroquin</OrderingPhyMNE> < DictatingPhyMNE>f rep dict dr marroquin</DictatingPhyMNE> <CCListMNE>f rep ct rosettee</ CCListMNE> <AdmittingPhyMNE>f pt admit dr marroquin</AdmittingPhyMNE> <AttendingPhyMNE >f pt attend dr marroquin</AttendingPhyMNE> <ConsultingPhyMNE>f pt consult dr marroquin</ConsultingPhyMNE> <FamilyPhyMNE>f pt fam dr marroquin</FamilyPhyMNE> <OtherPhyMNE>f pt other dr marroquin</OtherPhyMNE> < PrimaryPhyMNE>f pt prim care dr marroquin</PrimaryPhyMNE> <ReferringPhyMNE>f pt referring dr marroquin</ReferringPhyMNE> EKG Reviewed EKG and agree with interpretation as follows: 125 bpm, ectopic atrial tachycardia Impression Assessment and Plan 46 y/o male with a history of mechanical AVR in June 2011, HTN, HLD, gout, depression and anxiety, RLS, GINA, and h/o recurrent C. diff who presented to the ED on 12/04 with palpitations, dizziness and shortness of breath. Pt arrived with heart rate in the 130s-150s but other vital signs stable. Pt received Lopressor 5 mg IV x 2 doses in ED which did not help to bring rate down. CXR shows no acute disease. EKG shows ectopic atrial tachycardia. Labs grossly unremarkable. Pt seen by Dr. Barkley in the ED. Atrial tachycardia -Admit to telemetry for cardiac monitoring -Cardiology consulted, appreciate recs. Spoke with Dr. Barkley, recommends starting diltiazem drip for now to see if that can control rate. If not, could consider anti-arrhythmics, but pt may not be a good candidate. Could also consider ablation if pt is agreeable and rate not controlled with diltiazem. -Start diltiazem drip -NPO after midnight for possible ablation -Trend cardiac enzymes q8h x3. First set negative -EKG q am and prn with chest pain -Potassium, magnesium, and TSH all WNL Mechanical AVR on chronic anticoagulation -INR 2.1 on admission -Okay to continue warfarin per cardio -Continue warfarin 7 mg PO qd -Continue to monitor PT/INR HTN--stable -Continue Lopressor 150 mg PO qpm HLD -Continue simvastatin 40 mg PO qd Gout -Continue Uloric 40 mg PO qd Depression and anxiety -Continue bupropion 150 mg PO BID, escitalopram 20 mg PO qd, and Ativan 0.5 mg PO TID prn anxiety RLS -Continue Requip 0.5 mg PO qhs GINA -Set up CPAP H/o recurrent C. diff--pt had several bouts of C. diff following AVR, now on chronic vanc per infectious disease -Contact precautions -Continue vancomycin 125 mg PO qd DVT prophylaxis -Warfarin -KEVIN yousif and SCDs Code Status -Level I, FULL RESUSCITATION STATUS Level of Care Med/Surg Resuscitation Status FULL RESUSCITATION VTE Prophylaxis VTE Risk Assessment Done? Y/N: Yes Risk Level: Moderate Given or contraindicated: Warfarin (Coumadin), T.E.D. Stockings, SCD's Note Attending Attestation: Pt seen/examined, chart reviewed, care plan d/w RICARDA Her. I agree w/ the sahu components of her documentation. Pleasant 46yo male with h/o AVR on chronic coumadin (due to bicuspid AV) and long-standing palpitations/dysrhythmia along with chronic c. diff colonization presenting with worsening palpitations and tachycardia. Upon ER presentation found to have narrow complex tachycardia most c/w atrial tachycardia. Seen by Dr. Darin Barklye, cardiology, who recommended cardizem infusion in addition to his BB. During my assessment he denied any chest pain, dyspnea or other CV symptoms. PMH, PSH, allergies, meds, sochx, famhx, ros - reviewed VSS although he has remained tachy o2 sats & BP wnl gen - obese, NAD neck - no JVD heart - irregular, tachy, s1, s2, crisp mechanical sound heard, no murmur lungs - CTA b/l abd - soft ext - no edema TSH, K, mag, troponin - all normal EKG - atrial tach A/P: atrial tach - appreciate cardiology consultation. cardizem infusion. continue oral beta derrell. NPO after MN in the event he needs procedure. AVR - INR 2.1, goal is 2.5-3.5. If INR tomorrow is not therapeutic consider coumadin dose increase temporarily. chronic c. diff - cont vanco daily; contact isolation. other plans per [place]. Marcelino Zapata MD Additional Copies To Darin Barkley MD; Pro,Dillan Jason M.D.
[2016-12-04 18:38] LABS: BENZODIAZEPINE, URINE NEG (NEG); COCAINE,URINE NEG (NEG); PHENCYCLIDINE, URINE NEG (NEG)
[2016-12-04] MEDS: DILTIAZEM HCL INJ 125 MG in DEXTROSE 5% 100ML IV PRN ×2 (19:11→21:02)
[2016-12-04 19:22] LABS: URINE APPEARANCE CLEAR (CLEAR); URINE BILIRUBIN NEG (NEG); URINE COLOR YELLOW; URINE EPITHELIAL CELL AUTO 0-5 /lpf (0-5); URINE NITRITE NEG (NEG); URINE SPECIFIC GRAVITY 1.017 (1.000-1.030); UROBILINOGEN NEG (NEG); ZZUR CULT IF INDIC CLEAN CATCH NO
[2016-12-04 19:25] LABS: MANUAL MICROSCOPIC REQUIRED? NO; REVIEW REQ? NO
[2016-12-04 20:10] VITALS: BP 137/78; PULSE 76; TEMP 36.8; O2SAT 98; Ht 180.3 cm; Wt 113.9 kg
[2016-12-04] MEDS: VANCOMYCIN HCL 125 MG/2.5ML SOLN PO SCH (20:52)
[2016-12-04] MEDS: RASPBERRY SYRUP 5 ML UDP PO SCH (20:53)
[2016-12-04] MEDS: ESCITALOPRAM OXALATE 20 MG TAB PO SCH (20:55)
[2016-12-04] MEDS: BuPROPion SR 150 MG TABCR PO SCH (20:56)
[2016-12-04] MEDS: SIMVASTATIN 40 MG TAB PO SCH (20:56)
[2016-12-04] MEDS: ROPINIROLE HCL 0.25 MG TAB PO SCH (20:58)
[2016-12-04 21:00] VITALS: BP 128/72; PULSE 150
[2016-12-04] MEDS ORDERED: METOPROLOL TARTRATE 100 MG TAB PO SCH (21:00)
[2016-12-04] MEDS ORDERED: WARFARIN SOD 2 MG TAB PO SCH (21:00)
[2016-12-04] MEDS ORDERED: WARFARIN SOD 5 MG TAB PO SCH (21:00)
[2016-12-04] MEDS: ZOLPIDEM TARTRATE 10 MG TAB PO SCH (21:51)
[2016-12-04 22:00] VITALS: BP 126/81; PULSE 120
--- NOTE | 2016-12-04 22:51 | EMERGENCY ROOM VISIT NOTE ---
ED Visit Note First contact with patient: 14:55 I have personally seen and evaluated the patient with the PA. I agree with the diagnosis and management decisions and have been personally involved in the case. Patient was evaluated and felt to have a tachycardia, possibly a second degree AV block. IV metoprolol was given 2 without much meaningful rate control. Cardiology was consulted. Dr. Barkley evaluated the patient bedside and has recommended IV Cardizem drip. Please see Pasha Velasquez PA-C's notes for further details of the history, physical and visit.
[2016-12-04 23:00] VITALS: BP 92/55; PULSE 95
[2016-12-04 23:55] LABS: CKMB/CK RATIO 1.5 (0-3.0)
[2016-12-05] VITALS (7 sets, daily range): BP systolic 105–138; BP diastolic 54–91; PULSE 70–153; TEMP 36.6–36.9; O2SAT 91–97
[2016-12-05] MEDS: DILTIAZEM HCL INJ 125 MG in DEXTROSE 5% 100ML IV PRN ×2 (00:10→00:32)
[2016-12-05 07:29] LABS: HEMATOCRIT 45.3 % (42-52); MEAN CELL VOLUME 88.1 fL (80-100); MEAN CORPUSCULAR HGB CONC 32.9 g/dl (32-36); MEAN PLATELET VOLUME 10.2 fL (7.4-10.4); PLATELET COUNT 263 K/uL (130-400); RED BLOOD COUNT 5.14 M/uL (4.7-6.1)
[2016-12-05 07:35] LABS: INR 1.9 (0.9-1.1); PROTHROMBIN TIME (PATIENT) 21.2 SECONDS (9.0-12.0)
[2016-12-05] MEDS: MULTIVITAMIN TAB PO SCH (07:38)
[2016-12-05] MEDS: FEBUXOSTAT 40 MG TAB PO SCH (07:38)
[2016-12-05] MEDS: LACTOBACILLUS ACIDOPHILUS (FLORANEX) TAB PO SCH ×3 (07:38→15:56)
[2016-12-05] MEDS: BuPROPion SR 150 MG TABCR PO SCH ×2 (07:39→21:39)
[2016-12-05] MEDS: ASPIRIN 81 MG ECTAB PO SCH (07:39)
[2016-12-05 07:58] LABS: BLOOD UREA NITROGEN 16 mg/dl (7-18); BUN/CREATININE RATIO 14.6 (10-20); CALCIUM 8.8 mg/dl (8.5-10.1); CARBON DIOXIDE 28 mmol/L (21-32); CHLORIDE 109 mmol/L (98-107); GLUCOSE 103 mg/dl (70-99); MAGNESIUM 2.2 mg/dl (1.8-2.4); SODIUM 142 mmol/L (136-145)
[2016-12-05 08:03] LABS: CKMB/CK RATIO 1.5 (0-3.0)
[2016-12-05] MEDS ORDERED: DILTIAZEM BOLUS / DRIP IV STA (12:13)
[2016-12-05] MEDS ORDERED: ACETAMINOPHEN 325 MG TAB PO PRN (12:15)
[2016-12-05] MEDS ORDERED: DILTIAZEM HCL INJ 125 MG in DEXTROSE 5% 100ML IV PRN (12:30)
[2016-12-05] MEDS ORDERED: DILTIAZEM HCL 5 MG/ML 5 ML VIAL IV SCH (12:30)
--- NOTE | 2016-12-05 12:54 | Progress Note ---
Subjective Date of Service: Dec 05, 2016. Subjective Pt evaluation today including: conversation w/ patient, physical exam, lab review, conversation w/ design consultant, review of inpatient medication list Pain: no pain PO Intake: adequate Voiding: no voiding problems patient feeling fine today, mild palpitations reviewed tele, still with atrial tachycardia, rates 100-150's was bradycardic with some AV block overnight on the diltiazem drip, stopped this AM reviewed labs, troponin negative x 3 INR lower at 1.[address] Barkley, plans to start Sotalol in addition to metoprolol ablation on 12/07 Problem List Medical Problems: (1) Petechial rash Status: Acute Review of Systems Cardiac: + palpitations All Other Systems: Reviewed and Negative Medications Current Inpatient Medications Medications (Trade) Dose Ordered Sig/Robert Route Start Time Stop Time Status Last Admin Dose Admin Acetaminophen (Tylenol Tab) 650 mg Q4H PRN PO 12/04/16 18:00 01/03/17 17:59 Al Hydrox/Mg Hydrox/Simethicone (Maalox Max Susp) 15 ml Q4H PRN PO 12/04/16 18:00 01/03/17 17:59 Magnesium Hydroxide (Milk Of Magnesia Susp) 30 ml Q12H PRN PO 12/04/16 18:00 01/03/17 17:59 Ondansetron HCl (Zofran Inj) 4 mg Q6H PRN IV 12/04/16 18:00 01/03/17 17:59 Polyethylene (Miralax Powder Packet) 17 gm DAILY PRN PO 12/04/16 18:00 01/03/17 17:59 Aspirin (Ecotrin Tab) 81 mg QAM PO 12/05/16 09:00 01/04/17 08:59 12/05/16 07:39 81 MG Bupropion HCl (Wellbutrin-Sr Tab) 150 mg BID PO 12/04/16 21:00 01/03/17 20:59 12/05/16 07:39 150 MG Escitalopram Oxalate (Lexapro Tab) 20 mg HS PO 12/04/16 21:00 01/03/17 20:59 12/04/16 20:55 20 MG Lorazepam (Ativan Tab) 0.5 mg TID PRN PO 12/04/16 18:00 01/03/17 17:59 Multivitamins (Multivitamin Tab) 1 tab QAM PO 12/05/16 09:00 01/04/17 08:59 12/05/16 07:38 1 TAB Ropinirole HCl (Requip Tab) 0.5 mg HS PO 12/04/16 21:00 01/03/17 20:59 12/04/16 20:58 0.5 MG Simvastatin (Zocor Tab) 40 mg QPM PO 12/04/16 21:00 01/03/17 20:59 12/04/16 20:56 40 MG Vancomycin HCl (Vancomycin Oral Soln) 125 mg QPM PO 12/04/16 21:00 01/03/17 20:59 12/04/16 20:52 125 MG Warfarin Sodium (Coumadin Tab) 2 mg DAILY@1600 PO 12/04/16 21:00 01/03/17 20:59 Future Hold 12/04/16 20:57 2 MG Warfarin Sodium (Coumadin Tab) 5 mg DAILY@1600 PO 12/04/16 21:00 01/03/17 20:59 Future Hold 12/04/16 20:54 5 MG Zolpidem Tartrate (Ambien Tab) 10 mg HS PO 12/04/16 21:00 01/03/17 20:59 12/04/16 21:51 10 MG Lactobacillus Acidophilus (Floranex Tab) 4 tab TIDM PO 12/05/16 07:30 01/04/17 07:59 12/05/16 11:42 4 TAB Febuxostat (Uloric) 40 mg QAM PO 12/05/16 09:00 01/04/17 08:59 12/05/16 07:38 40 MG Raspberry (Raspberry Syrup 5ml Cup) 5 ml PM PO 12/04/16 21:00 12/18/16 20:59 12/04/16 20:53 5 ML Warfarin Sodium (Coumadin Tab) 10 mg DAILY@16 PO 12/05/16 16:00 01/04/17 15:59 Acetaminophen (Tylenol Tab) 650 mg Q4H PRN PO 12/05/16 12:15 01/04/17 12:14 Diltiazem HCl 125 mg/Dextrose 125 ml @ 0 mls/hr Q0M PRN IV 12/05/16 12:30 01/04/17 12:29 Objective Vital Signs Date Time Temp Pulse Resp B/P (MAP) Pulse Ox O2 Delivery O2 Flow Rate FiO2 12/05/16 11:23 153 22 110/71 (84) 97 Room Air 12/05/16 08:23 36.6 86 16 129/76 (93) 95 12/05/16 08:00 Room Air 12/05/16 04:32 36.8 82 19 105/54 (71) 92 Room Air 12/05/16 04:00 Room Air 12/05/16 00:00 36.9 70 20 105/59 (74) 91 Room Air 12/04/16 23:59 Room Air 12/04/16 23:00 95 92/55 (67) 12/04/16 22:00 120 126/81 (96) 12/04/16 21:00 150 128/72 (90) 12/04/16 20:10 36.8 76 18 137/78 98 Room Air 12/04/16 19:38 103 23 130/71 95 12/04/16 19:05 115 26 117/83 96 Room Air 12/04/16 17:21 132 19 123/91 96 Room Air 12/04/16 16:44 116 32 134/80 97 12/04/16 16:12 111 24 128/97 98 Room Air 12/04/16 15:58 128 23 132/96 98 Room Air 12/04/16 15:58 104 132/96 12/04/16 15:32 136 17 112/96 98 Room Air 12/04/16 15:31 98 Room Air 12/04/16 15:21 134 154/118 12/04/16 15:14 133 12/04/16 14:48 96 Room Air 12/04/16 14:45 36.7 Room Air Physical Exam General Appearance: WD/WN, no apparent distress Neck: supple, no adenopathy, no JVD, trachea midline Respiratory/Chest: chest non-tender, lungs clear, normal breath sounds, no respiratory distress, no accessory muscle use Cardiovascular: no edema, no gallop, no JVD, no murmur, + tachycardia, + irregularly irregular, + pertinent finding (audible click of artificial valve) Abdomen: normal bowel sounds, non tender, soft, no organomegaly Extremities: normal range of motion, non-tender, normal inspection, no pedal edema, no calf tenderness, pelvis stable Neurologic/Psychiatric: tool and die supervisor II-XII nml as tested, no motor/sensory deficits, alert, normal mood/affect, oriented x 3 Skin: normal color, warm/dry, no rash Lymphatic: no adenopathy Laboratory Results Last 24 Hours Test 12/04/16 15:25 12/04/16 15:38 12/04/16 17:50 12/04/16 23:13 White Blood Count 9.12 K/uL Red Blood Count 5.21 M/uL Hemoglobin 15.9 g/dL Hematocrit 46.0 % Mean Corpuscular Volume 88.3 fL Mean Corpuscular Hemoglobin 30.5 pg Mean Corpuscular Hemoglobin Concent 34.6 g/dl Platelet Count 251 K/uL Mean Platelet Volume 10.7 fL Neutrophils (%) (Auto) 63.9 % Lymphocytes (%) (Auto) 27.3 % Monocytes (%) (Auto) 7.2 % Eosinophils (%) (Auto) 1.3 % Basophils (%) (Auto) 0.2 % Neutrophils # (Auto) 5.82 K/uL Lymphocytes # (Auto) 2.49 K/uL Monocytes # (Auto) 0.66 K/uL Eosinophils # (Auto) 0.12 K/uL Basophils # (Auto) 0.02 K/uL RDW Standard Deviation 44.2 fL RDW Coefficient of Variation 13.6 % Immature Granulocyte % (Auto) 0.1 % Immature Granulocyte # (Auto) 0.01 K/uL Prothrombin Time 23.0 SECONDS Prothromb Time International Ratio 2.1 Activated Partial Thromboplast Time 36.9 SECONDS Partial Thromboplastin Ratio 1.4 Sodium Level 142 mmol/L Potassium Level 3.9 mmol/L Chloride Level 107 mmol/L Carbon Dioxide Level 25 mmol/L Anion Gap 10.0 mmol/L Blood Urea Nitrogen 18 mg/dl Creatinine 1.10 mg/dl Est Creatinine Clear Calc Drug Dose 109.3 ml/min Estimated GFR () 93.5 Estimated GFR (Non- 80.6 BUN/Creatinine Ratio 16.1 Random Glucose 86 mg/dl Calcium Level 8.9 mg/dl Magnesium Level 2.1 mg/dl Total Bilirubin 1.0 mg/dl Aspartate Amino Transf (AST/SGOT) 26 U/L Alanine Aminotransferase (ALT/SGPT) 34 U/L Alkaline Phosphatase 108 U/L Total Creatine Kinase 94 U/L 84 U/L Creatine Kinase MB 1.7 ng/ml 1.3 ng/ml Creatine Kinase MB Ratio 1.8 1.5 Total Protein 7.4 gm/dl Albumin 3.8 gm/dl Globulin 3.6 gm/dl Albumin/Globulin Ratio 1.1 Thyroid Stimulating Hormone (TSH) 1.790 uIu/ml Lyme Disease IgG Antibody NEG Lyme Disease IgM Antibody NEG Bedside Troponin I < 0.030 ng/ml Urine Color YELLOW Urine Appearance CLEAR Urine pH 5.0 Urine Specific Benjamin 1.017 Urine Protein TRACE Urine Glucose (UA) NEG Urine Ketones NEG Urine Occult Blood 3+ Urine Nitrite NEG Urine Bilirubin NEG Urine Urobilinogen NEG Urine Leukocyte Esterase TRACE Urine WBC (Auto) 1-5 /hpf Urine RBC (Auto) 0-4 /hpf Urine Hyaline Casts (Auto) 0 /lpf Urine Epithelial Cells (Auto) 0-5 /lpf Urine Bacteria (Auto) NEG Urine Opiates Screen NEG Urine Methadone, Qualitative NEG Urine Barbiturates NEG Urine Phencyclidine (PCP) Level NEG Ur Amphetamine/Methamphetamine NEG MDMA (Ecstasy) Screen POS Urine Benzodiazepines Screen NEG Urine Cocaine Metabolite NEG Urine Marijuana (THC) NEG Troponin I < 0.015 ng/ml Test 12/05/16 07:13 White Blood Count 7.60 K/uL Red Blood Count 5.14 M/uL Hemoglobin 14.9 g/dL Hematocrit 45.3 % Mean Corpuscular Volume 88.1 fL Mean Corpuscular Hemoglobin 29.0 pg Mean Corpuscular Hemoglobin Concent 32.9 g/dl RDW Standard Deviation 43.9 fL RDW Coefficient of Variation 13.5 % Platelet Count 263 K/uL Mean Platelet Volume 10.2 fL Prothrombin Time 21.2 SECONDS Prothromb Time International Ratio 1.9 Sodium Level 142 mmol/L Potassium Level 4.0 mmol/L Chloride Level 109 mmol/L Carbon Dioxide Level 28 mmol/L Anion Gap 5.0 mmol/L Blood Urea Nitrogen 16 mg/dl Creatinine 1.10 mg/dl Est Creatinine Clear Calc Drug Dose 108.1 ml/min Estimated GFR () 93.5 Estimated GFR (Non- 80.6 BUN/Creatinine Ratio 14.6 Random Glucose 103 mg/dl Calcium Level 8.8 mg/dl Magnesium Level 2.2 mg/dl Total Creatine Kinase 81 U/L Creatine Kinase MB 1.2 ng/ml Creatine Kinase MB Ratio 1.5 Troponin I < 0.015 ng/ml Assessment and Plan 46 y/o male with a history of mechanical AVR in June 2011, HTN, HLD, gout, depression and anxiety, RLS, GINA, and h/o recurrent C. diff who presented to the ED on 12/04 with palpitations, dizziness and shortness of breath. Pt arrived with heart rate in the 130s-150s but other vital signs stable. Pt received Lopressor 5 mg IV x 2 doses in ED which did not help to bring rate down. CXR shows no acute disease. EKG shows ectopic atrial tachycardia. Labs grossly unremarkable. Pt seen by Dr. Barkley in the ED. Atrial tachycardia -responded well to Diltiazem drip, too well with some AV block and bradycardia so drip stopped this AM - d/w Dr. Barkley, plan for ablation on - will start Sotalol BID this PM in addition to metoprolol 150mg - patient with occasional palpitations but otherwise fine Mechanical AVR on chronic anticoagulation -INR 2.1 on admission, dropped to 1.8 despite 7mg Coumadin - will increase Coumadin to 10mg daily today - per patient, he typically has issues with low INR, never had a high INR HTN--stable -Continue Lopressor 150 mg PO qpm HLD -Continue simvastatin 40 mg PO qd Gout -Continue Uloric 40 mg PO qd Depression and anxiety -Continue bupropion 150 mg PO BID, escitalopram 20 mg PO qd, and Ativan 0.5 mg PO TID prn anxiety RLS -Continue Requip 0.5 mg PO qhs GINA -Set up CPAP H/o recurrent C. diff--pt had several bouts of C. diff following AVR, now on chronic vanc per infectious disease -Contact precautions -Continue vancomycin 125 mg PO qd DVT prophylaxis -Warfarin -KEVIN yousif and SCDs Code Status -Level I, FULL RESUSCITATION STATUS Plan for ablation on 12/07, start Sotalol, keep on tele
--- NOTE | 2016-12-05 13:36 | Cardiology Follow-Up ---
Subjective Date of Service: Dec 05, 2016. Pt evaluation today including: conversation w/ patient, physical exam, chart review, lab review, review of studies, conversation w/ attending History of Present Illness Patient claims to be feeling well. He is aware of the palpitations. He denies any significant breathing difficulty or dizziness. He has not been up to the commode due to his activity restrictions. No symptoms of chest discomfort. py. Social History Smoking Status: Former Smoker History of Alcohol Use: Yes (Beer occassionally) Review of Systems Respiratory: + see HPI Cardiac: + palpitations Objective Vital Signs Past 12 Hours Date Time Temp Pulse Resp B/P (MAP) Pulse Ox O2 Delivery O2 Flow Rate FiO2 12/05/16 12:00 Room Air 12/05/16 11:23 153 22 110/71 (84) 97 Room Air 12/05/16 08:23 36.6 86 16 129/76 (93) 95 12/05/16 08:00 Room Air 12/05/16 04:32 36.8 82 19 105/54 (71) 92 Room Air 12/05/16 04:00 Room Air Last Recorded Weight-Kilograms: 112.500 Physical Exam The patient is alert and oriented. Mood and affect appeared normal. He answered all questions appropriately. HEENT: Pupils are equal and reactive to light and accommodation. Extraocular movements are intact. The sclerae are anicteric. Neuro: Cranial nerves intact Neck: Patient's neck is supple. He has palpable carotid pulses bilaterally without bruits on auscultation. There is no evidence of jugular venous distention. The thyroid is not enlarged. Lungs: Clear to auscultation bilaterally. He has good air movement without use of accessory muscles. No rales wheezes or rhonchi. Chest: Keel a type scar along the sternum and epigastrium Cardiac: Heart demonstrates an irregular rate and rhythm some ectopy and tachycardia. Normal S1 and mechanical S2. No murmurs on examination. Pulses: The patient has palpable radial pulses bilaterally that are equal in intensity Extremities: There was no evidence of hypoperfusion. There is no cyanosis or clubbing. There is no edema. Skin: I did not appreciate any rashes on examination today. Data Laboratory Results: Last 24 Hours Test 12/04/16 15:25 12/04/16 15:38 12/04/16 17:50 12/04/16 23:13 White Blood Count 9.12 K/uL Red Blood Count 5.21 M/uL Hemoglobin 15.9 g/dL Hematocrit 46.0 % Mean Corpuscular Volume 88.3 fL Mean Corpuscular Hemoglobin 30.5 pg Mean Corpuscular Hemoglobin Concent 34.6 g/dl Platelet Count 251 K/uL Mean Platelet Volume 10.7 fL Neutrophils (%) (Auto) 63.9 % Lymphocytes (%) (Auto) 27.3 % Monocytes (%) (Auto) 7.2 % Eosinophils (%) (Auto) 1.3 % Basophils (%) (Auto) 0.2 % Neutrophils # (Auto) 5.82 K/uL Lymphocytes # (Auto) 2.49 K/uL Monocytes # (Auto) 0.66 K/uL Eosinophils # (Auto) 0.12 K/uL Basophils # (Auto) 0.02 K/uL RDW Standard Deviation 44.2 fL RDW Coefficient of Variation 13.6 % Immature Granulocyte % (Auto) 0.1 % Immature Granulocyte # (Auto) 0.01 K/uL Prothrombin Time 23.0 SECONDS Prothromb Time International Ratio 2.1 Activated Partial Thromboplast Time 36.9 SECONDS Partial Thromboplastin Ratio 1.4 Sodium Level 142 mmol/L Potassium Level 3.9 mmol/L Chloride Level 107 mmol/L Carbon Dioxide Level 25 mmol/L Anion Gap 10.0 mmol/L Blood Urea Nitrogen 18 mg/dl Creatinine 1.10 mg/dl Est Creatinine Clear Calc Drug Dose 109.3 ml/min Estimated GFR () 93.5 Estimated GFR (Non- 80.6 BUN/Creatinine Ratio 16.1 Random Glucose 86 mg/dl Calcium Level 8.9 mg/dl Magnesium Level 2.1 mg/dl Total Bilirubin 1.0 mg/dl Aspartate Amino Transf (AST/SGOT) 26 U/L Alanine Aminotransferase (ALT/SGPT) 34 U/L Alkaline Phosphatase 108 U/L Total Creatine Kinase 94 U/L 84 U/L Creatine Kinase MB 1.7 ng/ml 1.3 ng/ml Creatine Kinase MB Ratio 1.8 1.5 Total Protein 7.4 gm/dl Albumin 3.8 gm/dl Globulin 3.6 gm/dl Albumin/Globulin Ratio 1.1 Thyroid Stimulating Hormone (TSH) 1.790 uIu/ml Lyme Disease IgG Antibody NEG Lyme Disease IgM Antibody NEG Bedside Troponin I < 0.030 ng/ml Urine Color YELLOW Urine Appearance CLEAR Urine pH 5.0 Urine Specific Valentine 1.017 Urine Protein TRACE Urine Glucose (UA) NEG Urine Ketones NEG Urine Occult Blood 3+ Urine Nitrite NEG Urine Bilirubin NEG Urine Urobilinogen NEG Urine Leukocyte Esterase TRACE Urine WBC (Auto) 1-5 /hpf Urine RBC (Auto) 0-4 /hpf Urine Hyaline Casts (Auto) 0 /lpf Urine Epithelial Cells (Auto) 0-5 /lpf Urine Bacteria (Auto) NEG Urine Opiates Screen NEG Urine Methadone, Qualitative NEG Urine Barbiturates NEG Urine Phencyclidine (PCP) Level NEG Ur Amphetamine/Methamphetamine NEG MDMA (Ecstasy) Screen POS Urine Benzodiazepines Screen NEG Urine Cocaine Metabolite NEG Urine Marijuana (THC) NEG Troponin I < 0.015 ng/ml Test 12/05/16 07:13 White Blood Count 7.60 K/uL Red Blood Count 5.14 M/uL Hemoglobin 14.9 g/dL Hematocrit 45.3 % Mean Corpuscular Volume 88.1 fL Mean Corpuscular Hemoglobin 29.0 pg Mean Corpuscular Hemoglobin Concent 32.9 g/dl RDW Standard Deviation 43.9 fL RDW Coefficient of Variation 13.5 % Platelet Count 263 K/uL Mean Platelet Volume 10.2 fL Prothrombin Time 21.2 SECONDS Prothromb Time International Ratio 1.9 Sodium Level 142 mmol/L Potassium Level 4.0 mmol/L Chloride Level 109 mmol/L Carbon Dioxide Level 28 mmol/L Anion Gap 5.0 mmol/L Blood Urea Nitrogen 16 mg/dl Creatinine 1.10 mg/dl Est Creatinine Clear Calc Drug Dose 108.1 ml/min Estimated GFR () 93.5 Estimated GFR (Non- 80.6 BUN/Creatinine Ratio 14.6 Random Glucose 103 mg/dl Calcium Level 8.8 mg/dl Magnesium Level 2.2 mg/dl Total Creatine Kinase 81 U/L Creatine Kinase MB 1.2 ng/ml Creatine Kinase MB Ratio 1.5 Troponin I < 0.015 ng/ml EKG: Sinus rhythm with brief episodes of atrial tachycardia. Telemetry reviewed: Continued episodes of frequent atrial tachycardia Assessment and Plan 1. Tachycardia: He continues to have frequent in sustained episodes of an atrial tachycardia. There is Mobitz 1 conduction at times, primarily while sleeping. He is aware of the palpitations but has no other symptoms. No evidence of congestive heart failure currently. There did not appear to be any benefit from use of diltiazem. We did discuss the use of antiarrhythmics but with his current medical therapy addition of a class 3 agent is contraindicated. There is a risk of QT prolongation with Lexapro. Given his structural heart disease is not a good candidate for class 1 C agent. I did discuss with him other options including catheter based therapy. I think we are moving in that direction given the lack of efficacy with beta-blockers and diltiazem and contraindications to most anti rhythmics. Will try some digoxin while he is here in the hospital and we await the availability of mapping for an EP study planned on . Aortic valve disease: Patient is status post mechanical aortic valve replacement. This appears to be functioning well as of 2015. No evidence of dysfunction on exam today. Patient is appropriately anticoagulated. He should be maintained on warfarin currently. No need to interrupt anticoagulation for any procedure.
[2016-12-05] MEDS ORDERED: DIGOXIN 0.25 MG TAB PO ONE ×2 (14:30→20:30)
[2016-12-05] MEDS: WARFARIN SOD 10 MG TAB PO SCH (15:55)
[2016-12-05] MEDS: RASPBERRY SYRUP 5 ML UDP PO SCH (21:38)
[2016-12-05] MEDS: VANCOMYCIN HCL 125 MG/2.5ML SOLN PO SCH (21:39)
[2016-12-05] MEDS: ROPINIROLE HCL 0.25 MG TAB PO SCH (21:39)
[2016-12-05] MEDS: ESCITALOPRAM OXALATE 20 MG TAB PO SCH (21:40)
[2016-12-05] MEDS: SIMVASTATIN 40 MG TAB PO SCH (21:40)
[2016-12-05] MEDS: ZOLPIDEM TARTRATE 10 MG TAB PO SCH (23:02)
[2016-12-06] VITALS (7 sets, daily range): BP systolic 104–144; BP diastolic 64–96; PULSE 58–128; TEMP 36.6–36.9; O2SAT 95–98
[2016-12-06 06:35] LABS: HEMATOCRIT 45.3 % (42-52); MEAN CELL VOLUME 87.8 fL (80-100); MEAN CORPUSCULAR HEMOGLOBIN 29.7 pg (25-34); MEAN CORPUSCULAR HGB CONC 33.8 g/dl (32-36); MEAN PLATELET VOLUME 10.6 fL (7.4-10.4); PLATELET COUNT 258 K/uL (130-400); RED BLOOD COUNT 5.16 M/uL (4.7-6.1); WHITE BLOOD COUNT 8.56 K/uL (4.8-10.8)
[2016-12-06 06:43] LABS: PROTHROMBIN TIME (PATIENT) 21.6 SECONDS (9.0-12.0)
[2016-12-06 07:12] LABS: BUN/CREATININE RATIO 14.3 (10-20); CALCIUM 8.7 mg/dl (8.5-10.1); CREATININE 1.2 mg/dl (0.60-1.40); MAGNESIUM 2.1 mg/dl (1.8-2.4)
[2016-12-06] MEDS: ACETAMINOPHEN 325 MG TAB PO PRN ×2 (07:31→17:30)
[2016-12-06] MEDS: LACTOBACILLUS ACIDOPHILUS (FLORANEX) TAB PO SCH ×3 (07:32→16:02)
[2016-12-06] MEDS: ASPIRIN 81 MG ECTAB PO SCH (07:33)
[2016-12-06] MEDS: MULTIVITAMIN TAB PO SCH (07:33)
[2016-12-06] MEDS: FEBUXOSTAT 40 MG TAB PO SCH (07:33)
[2016-12-06] MEDS: BuPROPion SR 150 MG TABCR PO SCH ×2 (07:34→20:32)
[2016-12-06] MEDS ORDERED: DIGOXIN 0.25 MG TAB PO ONE (09:00)
--- NOTE | 2016-12-06 09:36 | Cardiology Follow-Up ---
Subjective Date of Service: Dec 06, 2016. Pt evaluation today including: conversation w/ patient, physical exam, chart review, lab review, review of studies History of Present Illness Overall the patient has been feeling well. He did have an episode yesterday where he notices heart racing and he had some associated head pain and mild dyspnea. He states this is what he felt as an outpatient on occasion. He has been ambulatory around the room and the maldonado without symptoms. Generally speaking he denies dizziness. He has not had significant shortness of breath. He has no symptoms of chest discomfort. Social History Smoking Status: Former Smoker History of Alcohol Use: Yes (Beer occassionally) Review of Systems Respiratory: + see HPI Cardiac: + palpitations Objective Vital Signs Past 12 Hours Date Time Temp Pulse Resp B/P (MAP) Pulse Ox O2 Delivery O2 Flow Rate FiO2 12/06/16 09:12 130 12/06/16 08:00 Room Air 12/06/16 07:29 36.8 128 20 144/96 (112) 97 Room Air 12/06/16 04:00 Room Air 12/06/16 03:49 36.8 120 19 116/81 (93) 95 Room Air 12/06/16 00:00 36.9 122 20 144/87 (106) 96 Room Air 12/05/16 23:59 Room Air Last Recorded Weight-Kilograms: 113.900 Physical Exam The patient is alert and oriented. Mood and affect appeared normal. He answered all questions appropriately. HEENT: Pupils are equal and reactive to light and accommodation. Extraocular movements are intact. The sclerae are anicteric. Neuro: Cranial nerves intact Neck: Patient's neck is supple. He has palpable carotid pulses bilaterally without bruits on auscultation. There is no evidence of jugular venous distention. The thyroid is not enlarged. Lungs: Clear to auscultation bilaterally. He has good air movement without use of accessory muscles. No rales wheezes or rhonchi. Chest: Keel a type scar along the sternum and epigastrium Cardiac: Heart demonstrates an irregular rate and rhythm some ectopy and tachycardia. Normal S1 and mechanical S2. No murmurs on examination. Pulses: The patient has palpable radial pulses bilaterally that are equal in intensity Extremities: There was no evidence of hypoperfusion. There is no cyanosis or clubbing. There is no edema. Skin: I did not appreciate any rashes on examination today. Data Laboratory Results: Last 24 Hours Test 12/06/16 06:24 White Blood Count 8.56 K/uL Red Blood Count 5.16 M/uL Hemoglobin 15.3 g/dL Hematocrit 45.3 % Mean Corpuscular Volume 87.8 fL Mean Corpuscular Hemoglobin 29.7 pg Mean Corpuscular Hemoglobin Concent 33.8 g/dl RDW Standard Deviation 42.9 fL RDW Coefficient of Variation 13.3 % Platelet Count 258 K/uL Mean Platelet Volume 10.6 fL Prothrombin Time 21.6 SECONDS Prothromb Time International Ratio 2.0 Sodium Level 142 mmol/L Potassium Level 4.0 mmol/L Chloride Level 109 mmol/L Carbon Dioxide Level 27 mmol/L Anion Gap 6.0 mmol/L Blood Urea Nitrogen 17 mg/dl Creatinine 1.20 mg/dl Est Creatinine Clear Calc Drug Dose 99.7 ml/min Estimated GFR () 84.1 Estimated GFR (Non- 72.6 BUN/Creatinine Ratio 14.3 Random Glucose 116 mg/dl Calcium Level 8.7 mg/dl Magnesium Level 2.1 mg/dl Imaging: EKG: Telemetry reviewed: Assessment and Plan 1. Tachycardia: He continues to have frequent in sustained episodes of an atrial tachycardia. I was hoping to start the patient on a class 3 antiarrhythmic yesterday, but there seems to be an interaction with his other medical therapy, specifically Lexapro. As such we tried digoxin as he has had symptomatic relief with this medication remotely. However, it does not appear to have had a significant effect. We will continue on his beta-derrell and digoxin for the day but it is likely he will require an electrophysiologic study and possible ablation tomorrow. Based on his EKG, it appears the rhythm originates in the right atrium. However, true localization of the atrial tachycardia will require invasive study. This may in fact be a pulmonary vein focus which would need to be approached from the left atrium. Given his history of valve replacement and the limited equipment available at our facility , left atrial procedure would likely require transfer to tertiary care center. 2. Aortic valve disease: Patient is status post mechanical aortic valve replacement. Patient is appropriately anticoagulated. He should be maintained on warfarin currently. No need to interrupt anticoagulation for any procedure.
[2016-12-06] MEDS: METOPROLOL TARTRATE 50 MG TAB PO SCH ×2 (09:40→20:34)
--- NOTE | 2016-12-06 15:46 | Progress Note ---
Subjective Date of Service: Dec 06, 2016. Subjective Pt evaluation today including: conversation w/ patient, physical exam, lab review, conversation w/ development consultant Pain: no pain PO Intake: adequate Voiding: no voiding problems patient feeling well, had a CARR with tachycardia yesterday no symptoms today plans for ablation on 12/07 Problem List Medical Problems: (1) Petechial rash Status: Acute Review of Systems All Other Systems: Reviewed and Negative Medications Current Inpatient Medications Medications (Trade) Dose Ordered Sig/Robert Route Start Time Stop Time Status Last Admin Dose Admin Acetaminophen (Tylenol Tab) 650 mg Q4H PRN PO 12/04/16 18:00 01/03/17 17:59 12/06/16 07:31 650 MG Al Hydrox/Mg Hydrox/Simethicone (Maalox Max Susp) 15 ml Q4H PRN PO 12/04/16 18:00 01/03/17 17:59 Magnesium Hydroxide (Milk Of Magnesia Susp) 30 ml Q12H PRN PO 12/04/16 18:00 01/03/17 17:59 Ondansetron HCl (Zofran Inj) 4 mg Q6H PRN IV 12/04/16 18:00 01/03/17 17:59 Polyethylene (Miralax Powder Packet) 17 gm DAILY PRN PO 12/04/16 18:00 01/03/17 17:59 Aspirin (Ecotrin Tab) 81 mg QAM PO 12/05/16 09:00 01/04/17 08:59 12/06/16 07:33 81 MG Bupropion HCl (Wellbutrin-Sr Tab) 150 mg BID PO 12/04/16 21:00 01/03/17 20:59 12/06/16 07:34 150 MG Escitalopram Oxalate (Lexapro Tab) 20 mg HS PO 12/04/16 21:00 01/03/17 20:59 12/05/16 21:40 20 MG Lorazepam (Ativan Tab) 0.5 mg TID PRN PO 12/04/16 18:00 01/03/17 17:59 12/06/16 14:39 0.5 MG Multivitamins (Multivitamin Tab) 1 tab QAM PO 12/05/16 09:00 01/04/17 08:59 12/06/16 07:33 1 TAB Ropinirole HCl (Requip Tab) 0.5 mg HS PO 12/04/16 21:00 01/03/17 20:59 12/05/16 21:39 0.5 MG Simvastatin (Zocor Tab) 40 mg QPM PO 12/04/16 21:00 01/03/17 20:59 12/05/16 21:40 40 MG Vancomycin HCl (Vancomycin Oral Soln) 125 mg QPM PO 12/04/16 21:00 01/03/17 20:59 12/05/16 21:39 125 MG Warfarin Sodium (Coumadin Tab) 2 mg DAILY@1600 PO 12/04/16 21:00 01/03/17 20:59 Future Hold 12/04/16 20:57 2 MG Warfarin Sodium (Coumadin Tab) 5 mg DAILY@1600 PO 12/04/16 21:00 01/03/17 20:59 Future Hold 12/04/16 20:54 5 MG Zolpidem Tartrate (Ambien Tab) 10 mg HS PO 12/04/16 21:00 01/03/17 20:59 12/05/16 23:02 10 MG Lactobacillus Acidophilus (Floranex Tab) 4 tab TIDM PO 12/05/16 07:30 01/04/17 07:59 12/06/16 11:45 4 TAB Febuxostat (Uloric) 40 mg QAM PO 12/05/16 09:00 01/04/17 08:59 12/06/16 07:33 40 MG Raspberry (Raspberry Syrup 5ml Cup) 5 ml PM PO 12/04/16 21:00 12/18/16 20:59 12/05/16 21:38 5 ML Warfarin Sodium (Coumadin Tab) 10 mg DAILY@16 PO 12/05/16 16:00 01/04/17 15:59 12/05/16 15:55 10 MG Acetaminophen (Tylenol Tab) 650 mg Q4H PRN PO 12/05/16 12:15 01/04/17 12:14 12/05/16 14:35 650 MG Metoprolol Tartrate (Lopressor Tab) 50 mg BID PO 12/06/16 09:00 01/05/17 08:59 12/06/16 09:40 50 MG Objective Vital Signs Date Time Temp Pulse Resp B/P (MAP) Pulse Ox O2 Delivery O2 Flow Rate FiO2 12/06/16 12:00 Room Air 12/06/16 11:41 36.9 128 18 104/64 (77) 98 12/06/16 09:12 130 12/06/16 08:00 Room Air 12/06/16 07:29 36.8 128 20 144/96 (112) 97 Room Air 12/06/16 04:00 Room Air 12/06/16 03:49 36.8 120 19 116/81 (93) 95 Room Air 12/06/16 00:00 36.9 122 20 144/87 (106) 96 Room Air 12/05/16 23:59 Room Air 12/05/16 20:39 110 12/05/16 20:00 Room Air 12/05/16 19:43 36.9 101 20 138/91 (107) 95 Room Air 12/05/16 19:31 36.9 101 20 138/91 (107) 95 Room Air 12/05/16 16:00 Room Air Physical Exam General Appearance: WD/WN, no apparent distress ENT: normal ENT inspection, hearing grossly normal, pharynx normal Neck: supple, no adenopathy, no JVD, trachea midline Respiratory/Chest: chest non-tender, lungs clear, normal breath sounds, no respiratory distress, no accessory muscle use Cardiovascular: no edema, no gallop, no JVD, no murmur, + tachycardia, + irregularly irregular, + pertinent finding (audible click of valve) Abdomen: normal bowel sounds, non tender, soft, no organomegaly Extremities: normal range of motion, non-tender, normal inspection, no pedal edema, no calf tenderness, pelvis stable Neurologic/Psychiatric: corporate administrator II-XII nml as tested, no motor/sensory deficits, alert, normal mood/affect, oriented x 3 Skin: normal color, warm/dry, no rash Laboratory Results Last 24 Hours Test 12/06/16 06:24 White Blood Count 8.56 K/uL Red Blood Count 5.16 M/uL Hemoglobin 15.3 g/dL Hematocrit 45.3 % Mean Corpuscular Volume 87.8 fL Mean Corpuscular Hemoglobin 29.7 pg Mean Corpuscular Hemoglobin Concent 33.8 g/dl RDW Standard Deviation 42.9 fL RDW Coefficient of Variation 13.3 % Platelet Count 258 K/uL Mean Platelet Volume 10.6 fL Prothrombin Time 21.6 SECONDS Prothromb Time International Ratio 2.0 Sodium Level 142 mmol/L Potassium Level 4.0 mmol/L Chloride Level 109 mmol/L Carbon Dioxide Level 27 mmol/L Anion Gap 6.0 mmol/L Blood Urea Nitrogen 17 mg/dl Creatinine 1.20 mg/dl Est Creatinine Clear Calc Drug Dose 99.7 ml/min Estimated GFR () 84.1 Estimated GFR (Non- 72.6 BUN/Creatinine Ratio 14.3 Random Glucose 116 mg/dl Calcium Level 8.7 mg/dl Magnesium Level 2.1 mg/dl Assessment and Plan 46 y/o male with a history of mechanical AVR in June 2011, HTN, HLD, gout, depression and anxiety, RLS, GINA, and h/o recurrent C. diff who presented to the ED on 12/04 with palpitations, dizziness and shortness of breath. Pt arrived with heart rate in the 130s-150s but other vital signs stable. Pt received Lopressor 5 mg IV x 2 doses in ED which did not help to bring rate down. CXR shows no acute disease. EKG shows ectopic atrial tachycardia. Labs grossly unremarkable. Pt seen by Dr. Barkley in the ED. Atrial tachycardia - not responding to medications, tried class III anti-arrhythmic but in interacts with Lexapro - no response to Digoxin, Diltiazem or metoprolol - plan for ablation tomorrow Mechanical AVR on chronic anticoagulation -INR 2.1 on admission, dropped to 1.8 despite 7mg Coumadin - increased Coumadin to 10mg daily, INR only 2.0 today, continue 10mg - per patient, he typically has issues with low INR, never had a high INR HTN--stable -Continue Lopressor 150 mg PO qpm HLD -Continue simvastatin 40 mg PO qd Gout -Continue Uloric 40 mg PO qd Depression and anxiety -Continue bupropion 150 mg PO BID, escitalopram 20 mg PO qd, and Ativan 0.5 mg PO TID prn anxiety RLS -Continue Requip 0.5 mg PO qhs GINA -Set up CPAP 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
[2016-12-06] MEDS: WARFARIN SOD 10 MG TAB PO SCH (16:01)
[2016-12-06] MEDS ORDERED: NURSING VERBAL MED ORDER ONE (17:00)
[2016-12-06] MEDS ORDERED: DILTIAZEM HCL 5 MG/ML 5 ML VIAL IV ONE (17:15)
[2016-12-06] MEDS: ESCITALOPRAM OXALATE 20 MG TAB PO SCH (20:32)
[2016-12-06] MEDS: SIMVASTATIN 40 MG TAB PO SCH (20:32)
[2016-12-06] MEDS: ROPINIROLE HCL 0.25 MG TAB PO SCH (20:33)
[2016-12-06] MEDS: RASPBERRY SYRUP 5 ML UDP PO SCH (20:34)
[2016-12-06] MEDS: VANCOMYCIN HCL 125 MG/2.5ML SOLN PO SCH (20:38)
[2016-12-06] MEDS: ZOLPIDEM TARTRATE 10 MG TAB PO SCH (22:06)
[2016-12-07] VITALS (13 sets, daily range): BP systolic 101–142; BP diastolic 74–91; PULSE 55–138; TEMP 36.5–36.9; O2SAT 94–98
[2016-12-07 06:58] LABS: HEMATOCRIT 46.2 % (42-52); MEAN CELL VOLUME 88.5 fL (80-100); MEAN CORPUSCULAR HEMOGLOBIN 30.5 pg (25-34); MEAN CORPUSCULAR HGB CONC 34.4 g/dl (32-36); PLATELET COUNT 263 K/uL (130-400); RED BLOOD COUNT 5.22 M/uL (4.7-6.1); WHITE BLOOD COUNT 9.79 K/uL (4.8-10.8)
[2016-12-07 07:07] LABS: INR 2.2 (0.9-1.1); PROTHROMBIN TIME (PATIENT) 24.1 SECONDS (9.0-12.0)
[2016-12-07 07:25] LABS: CALCIUM 9.2 mg/dl (8.5-10.1); CREATININE 1.1 mg/dl (0.60-1.40); MAGNESIUM 2.2 mg/dl (1.8-2.4); POTASSIUM 4.2 mmol/L (3.5-5.1)
[2016-12-07] MEDS: LACTOBACILLUS ACIDOPHILUS (FLORANEX) TAB PO SCH ×3 (07:30→15:44)
[2016-12-07] MEDS ORDERED: FENTANYL CITRATE INJ 50 MCG/1 ML 2 ML VIAL ONE ×3 (08:23→10:50)
[2016-12-07] MEDS ORDERED: MIDAZOLAM HCL 5 MG/ML 1 ML VIAL ONE ×2 (08:24→09:12)
[2016-12-07] MEDS ORDERED: HEPARIN SOD (PORCINE) 1000 UNIT/ML 10 ML VIAL ONE (08:34)
[2016-12-07] MEDS: METOPROLOL TARTRATE 50 MG TAB PO SCH (09:00)
[2016-12-07] MEDS ORDERED: ISOPROTERENOL 200 MCG / 50ML D5W IV ONE (10:44)
[2016-12-07] MEDS: BuPROPion SR 150 MG TABCR PO SCH (12:23)
[2016-12-07] MEDS: FEBUXOSTAT 40 MG TAB PO SCH (12:23)
[2016-12-07] MEDS: ASPIRIN 81 MG ECTAB PO SCH (12:23)
[2016-12-07] MEDS: MULTIVITAMIN TAB PO SCH (12:24)
--- NOTE | 2016-12-07 13:12 | Procedure Note ---
Procedure Note Date of Service Dec 07, 2016. Procedure Note Procedure performed: Ablation of ectopic atrial tachycardia, 3 dimensional electro anatomical mapping, arrhythmia induction using program stimulation on and off isoproterenol, complete electrophysiologic testing including pacing from the left atrium via the coronary sinus Staff community mental health social worker: Indication: The patient is a 46-year-old gentleman with a history of mechanical aortic valve replacement. He presented to [facility] with symptoms of palpitations and tachycardia. He was noted to have an ectopic atrial tachycardia that was nearly incessant. Medical therapy was not effective. Therefore the patient was brought to the EP lab for electrophysiologic testing and possible ablation. Procedure in detail: The patient was informed of the risks benefits and alternatives to the intended procedure he understood such in which proceed. He was taken to the EP lab in a fasting state. Conscious sedation was administered per protocol the patient was monitored electrocardiographically throughout today's procedure. The right femoral area was prepped and draped in usual sterile fashion. This area was anesthetized using subcutaneous administration of xylocaine and Marcaine solution. The right femoral vein was then accessed 3 times using modified Selinger technique. Sheaths were placed over guidewires at this site and used to facilitate passage of the EP catheters to their respective chambers under fluoroscopic guidance. This included right ventricular coronary sinus and right atrial mapping catheter. The patient's tachycardia was subsequently mapped using three-dimensional electro anatomical mapping. The baseline electrical system was characterized. Radiofrequency lesions were placed in power limited mode in the area of earliest activation. Lesions were placed until the tachycardia terminated. Subsequent to ablation the patient underwent complete electrophysiologic testing including attempted arrhythmia induction. This was performed on and off isoproterenol with both burst atrial and programmed stimulation. At the conclusion of the procedure the baseline intervals were again measured. The catheters and sheaths were removed. Hemostasis was achieved at the access site using manual pressure. The patient tolerated procedure well there were no immediate complications. Findings: Three-dimensional electro anatomical mapping revealed area of earliest activation to be along the superior tricuspid annulus towards the septal region. At this location local activation was 50 milliseconds earlier than the surface P wave. High output pacing was performed in order to exclude phrenic nerve stimulation at this site prior to ablation. This site was also localized using catheters and fluoroscopy in order to avoid injury to the AV node and his bundle as they were in proximity. Ablation: Ablation was performed using power limited mode. Thirty-five tanner was delivered with a 4 sensing irrigated tip catheter. Multiple lesions were placed in the area of interest until the tachycardia was no longer inducible. Arrhythmia induction: Subsequent to ablation arrhythmia induction was performed using aggressive burst stimulation and program stimulation. Pacing was performed on isoproterenol up to 5 micrograms/minute. Baseline intracardiac intervals: Subsequent to ablation the following intervals were obtained: Cycle length in the atrium 966ms Cycle length in the ventricle 968ms CO interval 136ms QRS duration 96ms QT interval 412ms Corrected QT interval 419ms AH interval 78ms HV interval 38ms Av Wenckebach occurred at a cycle length of 380ms VA Wenckebach occurred at a cycle length of 390ms Retrograde conduction was concentric and decremental in nature Av node effective refractory period was 280ms There is no evidence of dual AV alissa physiology. There were no echo beats. Impression: 1. Successful ablation of right atrial tachycardia 2. Normal intracardiac interval subsequent to ablation 3. No evidence of dual AV alissa physiology 4. No evidence of accessory pathway conduction
[2016-12-07] MEDS ORDERED: METO50TA16 PO (13:56)
[2016-12-07] MEDS ORDERED: CMD10 PO (13:56)
--- NOTE | 2016-12-07 14:01 | Discharge Instructions ---
Discharge Instructions Date of Service Dec 07, 2016. Admission Reason for Admission: Palpitations, Tachycardia Discharge Discharge Diagnosis / Problem: Atrial tachycardia, AVR with subtherapeutic INR Discharge Goals Goal(s): Decrease discomfort, Improve disease control Activity Recommendations Activity Limitations: resume your previous activity Lifting Limitations: none Exercise/Sports Limitations: as tolerated May Resume Sexual Activity: when tolerated Shower/Bathe: no limitations Driving or Machine Use: no limitations . Instructions / Follow-Up Instructions / Follow-Up Medications: - COUMADIN: dose increased to 10mg daily, your INR was actually drifting down on 7mg, slowly going up now on 10mg, INR today is 2.2 - LOPRESSOR: take 50mg twice a day Atrial tachycardia: s/p ablation by Dr. Barkley, now in sinus rhythm if you have recurrent symptoms of palpitations call Dr. Barkley's office for recommendations, while you were here you were tolerating heart rates in the 120- 150's please call his office after discharge for follow up with either Dr. Barkley or Dr. Glaser in 1-2 weeks Mechanical valve replacement: INR subtherapeutic, today it is 2.2 please continue 10mg daily of Coumadin and you need to call Coumadin clinic for appointment in one week for further INR testing and advise of dosing Current Hospital Diet Patient's current hospital diet: Regular Diet Discharge Diet Recommended Diet: Regular Diet Procedures Procedures Performed: Right atrial ablation Pending Studies Studies pending at discharge: no Laboratory Results Lipid Panel Test 12/04/16 10:00 Range/Units Triglycerides Level 276 H 0-150 mg/dl Cholesterol Level 187 0-200 mg/dl HDL Cholesterol 42 mg/dl Cholesterol/HDL Ratio 4.5 LDL Cholesterol, Calculated 90 mg/dl Medical Emergencies . Who to Call and When: Medical Emergencies: If at any time you feel your situation is an emergency, please call 911 immediately. . Non-Emergent Contact Non-Emergency issues call your: Digital Advertising Analyst Call Non-Emergent contact if: you have any medication questions . . "Provider Documentation" section prepared by Tomy Queen. . VTE Core Measure Inpt VTE Proph given/why not?: Warfarin (Coumadin), Jenifer Valadez, SCD's [place] Drug Monitoring Program Search Results: no issues identified
--- NOTE | 2016-12-07 15:42 | Discharge Summary ---
Discharge Summary Date of Service Dec 07, 2016. Discharge Summary Admission Date: Dec 04, 2016 at 18:16 Discharge Date: Dec 07, 2016 Discharge Disposition: Home Principal Diagnosis: Atrial tachycardia Problems/Secondary Diagnoses: Mechanical AVR on Coumadin Immunizations: Have You Had Influenza Vaccine: Yes Influenza Vaccine Date: Feb 02, 2011 History of Tetanus Vaccine?: Unknown History of Pneumococcal: No History of Hepatitis B Vaccine: Unknown Procedures: Right atrial ablation Consultations: Cardiology Medication Reconciliation New Medications: Metoprolol Tartrate (Lopressor) (Lopressor) 50 Mg Tab 50 MG PO BID, #60 TAB 3 Refills Warfarin Sod (Coumadin) 10 Mg Tab 10 MG PO DAILY@16, #30 TAB 3 Refills Continued Medications: Amoxicillin (Amoxil) 500 Mg Cap 2000 MG PO UD, CAP TAKE 4 CAPSULES 1 HOURS PRIOR TO DENTAL APPOINTMENT. Aspirin (Aspirin Ec) 81 Mg Tab 81 MG PO QAM Bupropion (Wellbutrin Sr) 150 Mg Ertab 150 MG PO BID, 0 Refills Escitalopram Oxalate (Lexapro) 20 Mg Tab 20 MG PO HS Febuxostat (Uloric) 40 Mg Tab 40 MG PO QAM, TAB 3 Refills Lorazepam (Ativan *) 0.5 Mg Tab 0.5 MG PO TID PRN, 0 Refills Multiple Vitamin (Multivitamin) 1 Tab Tab 1 TAB PO QAM Probiotic Product (Align) 4 Mg Cap 4 MG PO HS Ropinirole (Requip) 0.25 Mg Tab 0.5 MG PO HS, TAB Simvastatin (Zocor) 40 Mg Tab 40 MG PO QPM Vancomycin Hcl (Vancomycin) 125 Mg Cap 125 MG PO QPM Zolpidem Tartrate (Ambien) 10 Mg Tab 10 MG PO HS, 0 Refills Discontinued Medications: Metoprolol Tartrate (Lopressor) (Lopressor) 100 Mg Tab 150 MG PO QPM, TAB Warfarin Sod (Jantoven) 5 Mg Tab 5 MG PO DAILY, TAB TAKE WITH 2MG FOR TOTAL DOSE OF 7MG Warfarin Sod (Jantoven) 2 Mg Tab 2 MG PO DAILY, TAB TAKE WITH 5 MG FOR TOTAL DOSE OF 7MG Discharge Exam Patient had successful ablation today. Discussed with juni Gupta for discharge to home and will see in the office. Review of Systems: Constitutional: No fever, No chills, No sweats, No weight loss, No weakness , No fatigue, No problem reported Eyes: No worsening of vision, No eye pain, No redness, No discharge, No diplopia, No problem reported ENT: No hearing loss, No unusual epistaxis, No nasal symptoms, No sore throat, No tinnitus, No dental problems, No trouble swallowing, No problem reported Respiratory: No cough, No sputum, No wheezing, No shortness of breath, No dyspnea on exertion, No dyspnea at rest, No hemoptysis, No problem reported Cardiovascular: No chest pain, No orthopnea, No PND, No edema, No claudication, No palpitations, No problem reported Abdomen: No pain, No nausea, No vomiting, No diarrhea, No constipation, No GI bleeding, No problem reported Musculoskeletal: No joint pain, No muscle pain, No swelling, No calf pain, No problem reported Genitourinary - Female: No dysuria, No urinary frequency, No urinary urgency , No urinary incontinence, No urinary retention, No hematuria Neurologic: No memory loss, No paralysis, No weakness, No numbness/tingling , No vertigo, No balance problems, No problem reported Psychiatric: No depression symptoms, No anhedonism, No anxiety, No insomnia , No substance abuse, No problem reported Endocrine: No fatigue, No excessive thirst, No excessive urination, No problem reported Hematologic / Lymphatic: No abnormal bleeding/bruising, No clotting problems , No swollen lymph nodes, No night sweats, No problem reported Integumentary: No rash, No itch, No new/changing skin lesions, No color change, No bleeding, No problem reported Physical Exam: General Appearance: WD/WN, no apparent distress Eyes: normal inspection, EOMI, sclerae normal ENT: normal ENT inspection, hearing grossly normal, pharynx normal Neck: supple, no adenopathy, no JVD, trachea midline Respiratory/Chest: chest non-tender, lungs clear, normal breath sounds, no respiratory distress, no accessory muscle use Cardiovascular: regular rate, rhythm, no edema, no gallop, no JVD, no murmur , normal peripheral pulses Abdomen / GI: normal bowel sounds, non tender, soft, no organomegaly Extremities: normal inspection, no calf tenderness, normal capillary refill , no pedal edema, normal range of motion, pelvis stable Neurologic/Psychiatric: 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 diff who presented to the ED on 12/04 with palpitations, dizziness and shortness of breath. Pt arrived with heart rate in the 130s-150s but other vital signs stable. Pt received Lopressor 5 mg IV x 2 doses in ED which did not help to bring rate down. CXR shows no acute disease. EKG shows ectopic atrial tachycardia. Labs grossly unremarkable. Pt seen by Dr. Barkley in the ED. Atrial tachycardia - did not respond to Metoprolol with addition of Cardizem, Digoxin - could not use Sotalol due to Lexapro - ablation on 12/07, tolerated well and in NSR afterwards - d/c to home on Lopressor 50mg BID, follow up in 10 days with cardiology Mechanical AVR on chronic anticoagulation -INR 2.1 on admission, dropped to 1.8 despite 7mg Coumadin - INR 2.2 after two days of Coumadin 10mg daily - follow up with coumadin clinic next week HTN--stable -Continue Lopressor 50mg BID HLD -Continue simvastatin 40 mg PO qd Gout -Continue Uloric 40 mg PO qd Depression and anxiety -Continue bupropion 150 mg PO BID, escitalopram 20 mg PO qd, and Ativan 0.5 mg PO TID prn anxiety RLS -Continue Requip 0.5 mg PO qhs GINA -Set up CPAP 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 Discharge Instructions Please refer to the electronic Patient Visit Report (Discharge Instructions) for additional information. Follow-Up Cardiology in 10 days Coumadin clinic next week Additional Copies To Darin Barkley MD; Candis Sanchez M.D., PHD; Dillan Bunn M.D.
[2016-12-07] MEDS: WARFARIN SOD 10 MG TAB PO SCH (15:44)
== END 2016-12-07 16:50 | disposition home or self-care (01) | DRG 274 ==
LOC: C.EDB 14:44 → C.2T 18:16 → CANRESERV 18:31 → ENRESERV 18:31
PROVIDERS: ADMIT Internal Medicine; ATTEND Internal Medicine
PROC: 02583ZZ Destruction of Conduction Mechanism, Percutaneous Approach (ICD-10-PCS; principal; 2016-12-07 08:00)
PROC: 02K83ZZ Map Conduction Mechanism, Percutaneous Approach (ICD-10-PCS; principal; 2016-12-07 08:00)
PROC: 4A0234Z Measurement of Cardiac Electrical Activity, Percutaneous Approach (ICD-10-PCS; principal; 2016-12-07 08:00)
DX: I47.1 Supraventricular tachycardia (principal); I10 Essential (primary) hypertension; E78.5 Hyperlipidemia, unspecified; F41.9 Anxiety disorder, unspecified; F32.9 Major depressive disorder, single episode, unspecified; M10.9 Gout, unspecified; G25.81 Restless legs syndrome; G47.33 Obstructive sleep apnea (adult) (pediatric); E66.9 Obesity, unspecified; Z68.35 Body mass index [BMI] 35.0-35.9, adult; R21 Rash and other nonspecific skin eruption; Z87.891 Personal history of nicotine dependence; Z95.2 Presence of prosthetic heart valve; Z79.82 Long term (current) use of aspirin; Z79.899 Other long term (current) drug therapy; Z79.01 Long term (current) use of anticoagulants; Z82.49 Family history of ischemic heart disease and other diseases of the circulatory system; Z81.8 Family history of other mental and behavioral disorders

== ENCOUNTER → 2016-12-04 | Outpatient (CLI) | payer OTHER ==
[2016-12-04 10:36] LABS: BASO % 0.1 %; BASO ABS # 0.01 K/uL (0-0.2); COMPLETE YES; EOS % 1.5 %; HEMATOCRIT 46.3 % (42-52); IG% 0.2 %; LYMPH % 27.6 %; LYMPH ABS # 2.47 K/uL (1.2-3.4); MEAN CELL VOLUME 88.2 fL (80-100); MEAN CORPUSCULAR HEMOGLOBIN 30.1 pg (25-34); MEAN CORPUSCULAR HGB CONC 34.1 g/dl (32-36); MEAN PLATELET VOLUME 10.7 fL (7.4-10.4); MONO % 7.3 %; NEUT % 63.3 %; PLATELET COUNT 270 K/uL (130-400); RED BLOOD COUNT 5.25 M/uL (4.7-6.1); WHITE BLOOD COUNT 8.95 K/uL (4.8-10.8)
[2016-12-04 11:22] LABS: ALT/SGPT 34 U/L (12-78); BLOOD UREA NITROGEN 19 mg/dl (7-18); CALCIUM 9.1 mg/dl (8.5-10.1); CARBON DIOXIDE 25 mmol/L (21-32); CHLORIDE 108 mmol/L (98-107); CHOLESTEROL 187 mg/dl (0-200); GLUCOSE 108 mg/dl (70-99); POTASSIUM 4.1 mmol/L (3.5-5.1); SODIUM 141 mmol/L (136-145); TRIGLYCERIDES 276 mg/dl (0-150); VERY LOW DENSITY LIPOPROT CALC 55 mg/dl
[2016-12-04 11:25] LABS: ALB/GLOB RATIO 1.1 (0.9-2); ALKALINE PHOSPHATASE 96 U/L (45-117); AST/SGOT 25 U/L (15-37); CHOLESTEROL/HDL RATIO 4.5; HDL CHOLESTEROL 42 mg/dl; LDL CHOLESTEROL CALCULATED 90 mg/dl
== END | disposition home or self-care (01) ==
LOC: C.LAB1850 09:56
PROVIDERS: ATTEND Internal Medicine
DX: M31.0 Hypersensitivity angiitis (principal); E78.5 Hyperlipidemia, unspecified

== ENCOUNTER → 2017-06-15 | Outpatient (CLI) | payer OTHER ==
[~2017-06-15] MED LIST changes: -ALLO100T PO; +CMD10 PO; -CMD5 PO; +FEBU40TA PO; -LPR25 PO; +ROPI0.25 PO
[2017-06-15 10:01] LABS: BASO % 0.1 %; BASO ABS # 0.01 K/uL (0-0.2); EOS % 2.2 %; EOS ABS # 0.19 K/uL (0-0.5); HEMATOCRIT 41.8 % (42-52); HEMOGLOBIN 14.3 g/dL (14.0-18.0); IG# 0.01 K/uL (0.00-0.02); LYMPH % 22.7 %; LYMPH ABS # 1.95 K/uL (1.2-3.4); MEAN CELL VOLUME 86.7 fL (80-100); MEAN CORPUSCULAR HEMOGLOBIN 29.7 pg (25-34); MEAN CORPUSCULAR HGB CONC 34.2 g/dl (32-36); MEAN PLATELET VOLUME 9.8 fL (7.4-10.4); MONO % 7.2 %; MONO ABS # 0.62 K/uL (0.11-0.59); NEUT % 67.7 %; PLATELET COUNT 264 K/uL (130-400); RED CELL DISTRIBUTION WIDTH CV 13.1 % (11.5-14.5); WHITE BLOOD COUNT 8.58 K/uL (4.8-10.8)
[2017-06-15 10:33] LABS: CREATININE 1.08 mg/dl (0.60-1.40)
[2017-06-15 10:34] LABS: ALBUMIN 3.4 gm/dl (3.4-5.0); ALT/SGPT 33 U/L (12-78); AST/SGOT 27 U/L (15-37); URIC ACID 5.1 mg/dl (2.6-7.2)
[2017-06-15 10:36] LABS: ALKALINE PHOSPHATASE 108 U/L (45-117); TOTAL PROTEIN 6.9 gm/dl (6.4-8.2)
== END | disposition home or self-care (01) ==
LOC: C.LAB 09:15
PROVIDERS: ATTEND Internal Medicine Rheumatology
DX: M10.9 Gout, unspecified (principal); M31.0 Hypersensitivity angiitis; R79.82 Elevated C-reactive protein (CRP)

== ENCOUNTER → 2017-07-30 | Outpatient (CLI) | payer OTHER ==
--- NOTE | 2017-07-30 16:18 | DIAGNOSTIC IMAGING REPORT ---
L-SPINE MIN 4 VIEWS ROUTINE CLINICAL HISTORY: Acute lower back pain radiating into left lower extremity. COMPARISON: None FINDINGS: Alignment of the lumbar spine is anatomic. No fracture is present. There is no suspicious osseous lesion. There is moderate disc space narrowing with osteophytosis and vacuum disc phenomenon at L5-S1 and to a lesser extent L4-L5. There is moderate multilevel facet arthrosis. IMPRESSION: 1. No acute lumbar spine fracture or subluxation. 2. Moderate multilevel disc space narrowing, osteophytosis, vacuum disc phenomenon and facet arthrosis within the lower lumbar spine. Electronically signed by: Bernardo Ward M.D. 07/30/2017 4:17 PM Dictated Date/Time: 07/30/2017 4:16 PM
== END | disposition home or self-care (01) ==
LOC: C.RAD1850 15:53
PROVIDERS: ATTEND Physician Assistant
DX: M54.9 Dorsalgia, unspecified (principal)

== ENCOUNTER → 2017-08-16 | Outpatient (CLI) | payer OTHER ==
--- NOTE | 2017-08-16 17:48 | DIAGNOSTIC IMAGING REPORT ---
LEG LENGTH STUDY (WHOLE LEG) HISTORY: 47 years-old Male SACROILIITIS,LEG LENGTH DISCREPENCY COMPARISON: None available TECHNIQUE: Single AP view of the bilateral lower extremities FINDINGS: The right lower extremity measured from the femoral head to the tibial plafond measures 91.5 cm. The left lower extremity measured from the femoral head to the tibial plafond measures 92.1 cm. Focal area of cortical thickening involving the lateral mid shaft right femur suggests area of remote trauma. No significant degenerative changes identified. No acute fracture or dislocation is seen. IMPRESSION: Left leg measures 0.6 cm longer than the right. The above report was generated using voice recognition software. It may contain grammatical, syntax or spelling errors. Electronically signed by: Eric Johnson M.D. 08/16/2017 5:47 PM Dictated Date/Time: 08/16/2017 5:43 PM
== END | disposition home or self-care (01) ==
LOC: C.RADBC 15:57
PROVIDERS: ATTEND Physician Assistant Medical
DX: M46.1 Sacroiliitis, not elsewhere classified (principal); M21.751 Unequal limb length (acquired), right femur

== ENCOUNTER → 2017-12-24 | Outpatient (CLI) | payer OTHER ==
[2017-12-24 12:22] LABS: ALT/SGPT 34 U/L (12-78); AST/SGOT 24 U/L (15-37); BLOOD UREA NITROGEN 21 mg/dl (7-18); CALCIUM 9.2 mg/dl (8.5-10.1); CARBON DIOXIDE 23 mmol/L (21-32); CHOLESTEROL 180 mg/dl (0-200); CREATININE 1.13 mg/dl (0.60-1.40); GLUCOSE 107 mg/dl (70-99); LDL CHOLESTEROL CALCULATED 98 mg/dl; POTASSIUM 4.2 mmol/L (3.5-5.1); SODIUM 140 mmol/L (136-145)
== END | disposition home or self-care (01) ==
LOC: C.LAB1850 10:45
PROVIDERS: ATTEND Internal Medicine
DX: Z51.81 Encounter for therapeutic drug level monitoring (principal); Z79.899 Other long term (current) drug therapy; E78.5 Hyperlipidemia, unspecified; I10 Essential (primary) hypertension